=== PATIENT | male | born 1960 | race Caucasian/White ===

== ENCOUNTER 2021-05-22 11:58 | Inpatient (IN) | payer OTHER, SELFPAY ==
--- NOTE | ~2021-05-22 | CT_ITS ---
EXAMINATION: CT SOFT TISSUE NECK WITH CONTRAST CLINICAL INFORMATION: Parotitis. Osteomyelitis versus abscess formation. COMPARISON: None available. TECHNIQUE: Multidetector helical imaging was performed in the axial plane following the administration of 60 mL of Omnipaque 350 intravenous contrast. Multiple axial reformats and coronal/sagittal reconstructions were created the technologist workstation for review. This CT examination was performed using dose optimization techniques as appropriate, variously including the following: *Automated exposure control. *Adjustment of mA and/or kV according to patient size (this includes techniques or standardized protocols for targeted exams where dose is matched to indication/reason for exam; i.e. extremities or head). *Use of iterative reconstruction technique. DLP: 818 mGy-cm FINDINGS: There appears to be a heterogeneous soft tissue lesion centered in the deep aspect of the superficial lobe of the right parotid gland that extends through the stylomandibular tunnel, measuring approximately 2.7 x 2.4 x 3.7 cm. There also appears to be a 1.1 cm soft tissue nodule in the lateral aspect of the superficial lobe of the right parotid gland. No demonstrated fluid collection, sialoliths, or salivary ductal dilatation. Moderate fat stranding inferior to the right parotid gland extending into the right submandibular space and submental region. Mild fat stranding within the right parapharyngeal adipose tissue. Mild thickening of the right greater than left aspects of the platysma muscle. Mild fat stranding within the subcutaneous tissues of the right anterior neck. No significant cutaneous thickening or subcutaneous inflammation. No discrete fluid collection within the deep tissues of the neck. The premaxillary, retromaxillary, pterygopalatine fossa, orbital apical, left parapharyngeal, and prelaryngeal adipose tissue is maintained. Mild heterogeneous enlargement of the right submandibular gland with potential 0.8 cm lesion in the anterior aspect of the gland. Normal appearance of the left-sided parotid and mandibular glands. There appears to be ill-defined heterogeneous enlargement of the lower poles of the thyroid gland bilaterally. Right-sided cervical chain lymph nodes are mildly increased in number. A right-sided level 3 lymph node measures up to 1.4 cm. Otherwise, bilateral cervical chain lymph nodes largely remain subcentimeter in size. No demonstrated focal lesion or abnormal enhancement within the intrinsic tissues of the tongue or floor of mouth. Moderate diffuse edema of the mucosal surfaces of the pharynx, epiglottis, and larynx. Normal appearance of the hyoid bone, thyroid cartilage, or cartilaginous trachea. Moderate narrowing of the pharyngeal and supraglottic airway. No radiopaque foreign bodies. The atlantooccipital and atlantoaxial articulations remain well aligned. Straightening of the normal cervical lordosis. No evidence of acute fracture or subluxation of the cervical spine. The vertebral body heights are maintained. Advanced degenerative disc disease at C4-C5 and C6-C7 with disc-osteophyte complex formation. Mild degenerative disc disease at all additional cervical levels. Facet and uncovertebral joint arthropathy leads to osseous encroachment on the neural foramina from C3-C7. No evidence of epidural collection. There is no prevertebral soft tissue swelling. Normal opacification of the cervical arterial and venous structures. The visualized portion of the skull base is without significant abnormalities. Near complete opacification of the bilateral maxillary sinuses. Mild atelectasis of the right maxillary sinus. Moderate mucosal thickening of the ethmoid air cells. Moderate rightward nasal septal deviation with spurring. The mastoid air cells and middle ear cavities are clear. No demonstrated significant periapical odontogenic disease. CT Upper Chest: Extensive patchy irregular groundglass opacities throughout the periphery of the visualized upper lungs. Nonspecific mediastinal lymphadenopathy. A lower right paratracheal lymph node measures up to 1.8 cm in short axis. Higher right paratracheal, periaortic, and left hilar lymph nodes measure up to 1 cm in short axis. Trace bilateral pleural effusions. Coronary artery calcifications. The ascending aorta is aneurysmal, measuring [address]/CT soft tissue neck w con IMPRESSION: 1. Complex constellation of findings within the soft tissues of the neck: - There appears to be a 3.7 cm heterogeneous soft tissue mass in the deep aspect of the superficial lobe of the right parotid gland that extends through the stylomandibular tunnel. There also appears to be a 1.1 cm lesion in the superficial aspect of the right parotid gland. - Edematous expansion of the right submandibular gland. - Heterogeneous enlargement of the lower poles of the bilateral thyroid lobes - Moderate diffuse mucosal edema of the pharyngeal and laryngeal surfaces. Associated moderate narrowing of the pharyngeal and supraglottic airway. - Mildly prominent right greater than left cervical chain lymphadenopathy. Moderate mediastinal lymphadenopathy. - Extensive groundglass airspace opacities within the visualized upper lungs. Trace bilateral pleural effusions. The underlying etiology of this constellation of findings remains nonspecific. While an infectious/inflammatory process or angioedema could have some of these findings, there remains suspicion of an underlying neoplastic process when taking into account the lesion within the right parotid gland. 2. Moderate sinonasal mucosal disease with extensive bilateral maxillary sinusitis. 3. Moderate multilevel degenerative spinal arthropathy of the cervical spine. 4. Ascending aortic aneurysm, measuring 4 cm in diameter.
--- NOTE | ~2021-05-22 | XR_ITS ---
EXAMINATION: XR CHEST CLINICAL INFORMATION: Covid infection COMPARISON: None TECHNIQUE: 2 views of the chest were obtained. FINDINGS: The cardiac silhouette is upper normal in size. Hilar and mediastinal contours are unremarkable. There are bilateral infiltrates compatible with Covid infection. There is no pleural effusion or pneumothorax. There are degenerative changes of the spine. XR/XR chest 2V IMPRESSION: Bilateral infiltrates compatible with Covid infection.
[2021-05-22 13:29] VITALS: BP 166/82; PULSE 138; RESP 19; TEMP 36.6; O2SAT 93; BMI 30.8
--- NOTE | 2021-05-22 13:38 | ECG_ITS ---
Test Reason : tachy Blood Pressure : / mmHG Vent. Rate : 087 BPM Atrial Rate : 087 BPM P-R Int : 200 ms QRS Dur : 154 ms QT Int : 436 ms P-R-T Axes : 080 -53 085 degrees QTc Int : 524 ms Normal sinus rhythm Right bundle branch block Left anterior fascicular block Bifascicular block Minimal voltage criteria for LVH, may be normal variant ( R in aVL ) T wave abnormality, consider lateral ischemia Abnormal ECG No previous ECGs available Referred By: Generic ED Physician Electronically Signed By:[place]
[2021-05-22 14:00] LABS: MANUAL DIFF FLAG NO
[2021-05-22 14:03] LABS: Basophils Percent Auto 0.3 % (0-2); Eosinophils Absolute Auto 0.1 X10*3/uL (0.0-0.4); Eosinophils Percent Auto 0.9 % (0-4); Hematocrit 24.8 % (42.0-52.0); Hemoglobin 8.4 g/dl (14.0-18.0); Imm Gran Abs Auto 0.07 X10*3/uL (0.00-0.03); Imm Gran Pct Auto 0.6 % (0.0-0.4); Lymphocytes Absolute Auto 0.9 X10*3/uL (1.2-4.9); Mean Corpuscular HGB Conc 33.9 g/dl (31.0-36.0); Mean Corpuscular Hemoglobin 28.2 pg (27.0-33.0); Mean Corpuscular Volume 83.2 fL (80.0-98.0); Monocytes Absolute Auto 0.9 X10*3/uL (0.1-1.2); Monocytes Percent Auto 8.1 % (2-11); Neutrophils Absolute Auto 9.4 x10*3/uL (2.0-8.3); Neutrophils Percent Auto 82.1 % (45-73); Platelet Count 365 X10*3/uL (160-400); Red Blood Count 2.98 X10*6/uL (4.60-5.80); Red Cell Distribution Width 14.7 % (11.0-16.0); White Blood Count 11.4 X10*3/uL (4.8-10.8)
[2021-05-22 14:11] LABS: Lactic Acid 0.8 mmol/L (0.5-2.0)
[2021-05-22 14:18] LABS: Anion Gap 13 (12-20); Blood Urea Nitrogen 15 mg/dL (9-16); Calcium 7.9 mg/dL (8.4-10.2); Carbon Dioxide 21 mmol/L (22-29); Chloride 104 mmol/L (96-108); Creatinine Clr Calc Pharmacy 83.7; Estimated Glomerular Filt Rate > 60; Glucose Random 100 mg/dL (60-115); Potassium 3.8 mmol/L (3.3-5.1); Sodium 134 mmol/L (135-145)
[2021-05-22 14:21] LABS: Troponin-I High Sensitivity 63.1 ng/L (<3.5-35.0)
--- NOTE | 2021-05-22 17:20 | ED.GENADULT ---
HPI - General Adult General Chief complaint: General Medical Stated complaint: Fever/ swollen lymph node Time Seen by Provider: 05/22/21 16:58 Source: patient Mode of arrival: ambulatory History of Present Illness HPI narrative: 60-year-old male with PMH HTN, COVID-19 positive on 05/02, recently discharged from [facility] on 05/19 s/p admission on 05/02 for COVID-19 presenting to the ED complaining of right-sided neck swelling/pain, fever T-max 100.9?, difficulty/pain with swallowing since Thursday. Reports associated right-sided ear pain. Admits to persistent SOB since COVID-19, unchanged. Denies inability to swallow, CP, SOB, pedal edema, trauma/fall Onset (ago): day(s) Related Data Allergies Allergy/AdvReac Type Severity Reaction Status Date / Time No Known Allergies Allergy Unverified 05/22/21 17:10 Review of Systems Review of Systems: Constitutional: + Fever, No Chills, No Fatigue, No Malaise ENT/Mouth: +R neck pain, No Hearing loss, + Ear Pain, No Nasal Congestion, No Sinus Pain, No Hoarseness, + sore throat, No Rhinorrhea, + painful swallowing Eyes: No Eye Pain, No Swelling, No Redness Cardiovascular: No Chest Pain, +chronic SOB, No Dyspnea on Exertion Respiratory: No Cough, No Dyspnea Gastrointestinal: No Nausea, No Vomiting, No Diarrhea, No Constipation, No Abdominal pain Genitourinary: No Dysuria, No Urinary Frequency Musculoskeletal: No joint pain, No Myalgias, No Joint Swelling Skin: No Skin Lesions, No rash Neuro: No Weakness, No Numbness, No Headache Yes all other systems are reviewed and are negative [facility] Past Medical History Attestation statement: The following information was validated with the patient. Medical History HTN (hypertension) Social History Social History Advance Directives: No Advance Directives Information Provided: Yes Physical Exam Vital Signs: Vital Signs: Last Vital Signs Temp 98.9 F 05/22/21 19:16 Pulse 86 05/22/21 19:16 Resp 18 05/22/21 19:16 BP 114/65 05/22/21 19:16 Pulse Ox 94 05/22/21 19:16 BMI result Body Mass Index 30.8 Const: General: cooperative and no acute distress Orientation/consciousness: patient oriented x3 Limitations: no limitations HENMT: Head: Yes normal to inspection and Yes atraumatic Ears: hearing grossly normal bilaterally, external ears normal, TM's normal bilaterally and mastoids normal General nose exam: Normal external nose present Mouth: Normal oral and palatal mucosa present, no audible dysphonia and no drooling Throat: Yes posterior oropharynx normal, Yes tonsils normal, Yes uvula midline and No uvular edema Eyes: General: appearance normal, both eyes and all related structures EOM: EOMs intact bilaterally Neck: Other: + right-sided parotitis, + tender to palpation. No overlying erythema/cellulitis. No fluctuance/induration Neck: Yes normal visual inspection and Yes supple Resp: Effort & Inspection: normal respiratory effort Auscultation: clear to auscultation bilaterally, no rales, no rhonchi and no wheezes Cardio: Rate: regular rate Heart sounds: S1 normal heart sound present and S2 normal heart sound present GI: Inspection: Yes normal to inspection Palpation (GI): Soft to palpation, nontender and no guarding Skin: Rashes: no rashes Wounds: no wounds Neuro: General: patient oriented x3, tone normal and moves all extremities Gait exam (Neuro): Normal gait present Extrem: General: Yes normal to inspection Course Course Course Narrative: -mild leukocytosis of 11.4. H/H at patient's baseline -initial troponin 63.1, EKG nonischemic > will obtain 3hr repeat -1753--obtained records from [facility] patient was admitted on 05/02 s/p being found minimally responsive at home in hypoxic respiratory failure secondary to COVID-19. Hospital admission was complicated by urinary retention s/p Hernandez placement and iron deficiency anemia. H&H on 05/19 hemoglobin of 7.9, hematocrit of 24 XR chest 2V IMPRESSION: Bilateral infiltrates compatible with Covid infection. >> per [facility] records patient with known COVID-19 pneumonia, CXR appears unchanged -1824--CRP elevated to 17 2030--CT soft tissue neck w con IMPRESSION: 1. Complex constellation of findings within the soft tissues of the neck: - There appears to be a 3.7 cm heterogeneous soft tissue mass in the deep aspect of the superficial lobe of the right parotid gland that extends through the stylomandibular tunnel. There also appears to be a 1.1 cm lesion in the superficial aspect of the right parotid gland. ? - Edematous expansion of the right submandibular gland. ? - Heterogeneous enlargement of the lower poles of the bilateral thyroid lobes ? - Moderate diffuse mucosal edema of the pharyngeal and laryngeal surfaces. Associated moderate narrowing of the pharyngeal and supraglottic airway. ? - Mildly prominent right greater than left cervical chain lymphadenopathy. Moderate mediastinal lymphadenopathy. ? - Extensive groundglass airspace opacities within the visualized upper lungs. Trace bilateral pleural effusions. ? The underlying etiology of this constellation of findings remains nonspecific. While an infectious/inflammatory process or angioedema could have some of these findings, there remains suspicion of an underlying neoplastic process when taking into account the lesion within the right parotid gland. ? 2. Moderate sinonasal mucosal disease with extensive bilateral maxillary sinusitis. ? 3. Moderate multilevel degenerative spinal arthropathy of the cervical spine. ? 4. Ascending aortic aneurysm, measuring 4 cm in diameter. >> case discussed with Dr. Parada, will give 10 of IV Decadron and plan to admit Medical Decision Making MDM Narrative Medical decision making narrative: 60-year-old male with PMH HTN, COVID-19 positive on 05/02, recently discharged from [facility] on 05/19 s/p admission on 05/02 for COVID-19 presenting to the ED complaining of right-sided neck swelling/pain, fever T-max 100.9?, difficulty/pain with swallowing since Thursday. On exam initially tachycardic, afebrile, satting 93% on RA (discharge from [facility] 94% on RA), talking in complete sentences, in no respiratory distress, right-sided parotitis noted with tenderness to palpation, no appreciable overlying cellulitis. Concern for underlying abscess versus osteomyelitis Plan: Labs, lactic/blood cultures, empiric IV antibiotics, CT, pain control Medical Records Medical records reviewed: Yes I reviewed the patient's medical records. Lab Data Lab results reviewed: Yes I reviewed the patient's lab results. Result diagrams: 05/22/21 13:53 05/22/21 13:53 Labs: Lab Results 05/22/21 05/22/21 05/22/21 Range/Units 13:53 13:53 13:53 WBC 11.4 H (4.8-10.8) X10*3/uL RBC 2.98 L (4.60-5.80) X10*6/uL Hgb 8.4 L (14.0-18.0) g/dl Hct 24.8 L (42.0-52.0) % MCV 83.2 (80.0-98.0) fL MCH 28.2 (27.0-33.0) pg MCHC 33.9 (31.0-36.0) g/dl RDW 14.7 (11.0-16.0) % Plt Count 365 (160-400) X10*3/uL MPV 9.0 L (9.4-12.4) fL Immature Gran % (Auto) 0.6 H (0.0-0.4) % Neut % (Auto) 82.1 H (45-73) % Lymph % (Auto) 8.0 L (20-40) % [place] % (Auto) 8.1 (2-11) % Eos % (Auto) 0.9 (0-4) % Baso % (Auto) 0.3 (0-2) % Lymph # (Auto) 0.9 L (1.2-4.9) X10*3/uL [place] # (Auto) 0.9 (0.1-1.2) X10*3/uL Eos # (Auto) 0.1 (0.0-0.4) X10*3/uL Baso # (Auto) 0.0 (0.0-0.2) X10*3/uL Abs Immat Gran (auto) 0.07 H (0.00-0.03) X10*3/uL Absolute Neuts (auto) 9.4 H (2.0-8.3) x10*3/uL Absolute Nucleated RBC 0.000 (0.0-0.012) X10*3/uL Nucleated RBC % (auto) 0.0 (0.0-0.2) /100WBC ESR (0-15) MM/HR Sodium 134 L (135-145) mmol/L Potassium 3.8 (3.3-5.1) mmol/L Chloride 104 (96-108) mmol/L Carbon Dioxide 21 L (22-29) mmol/L Anion Gap 13 (12-20) BUN 15 (9-16) mg/dL Creatinine 1.00 (0.5-1.4) mg/dL Estim Creat Clear Calc 83.7 Estimated GFR > 60 Random Glucose 100 (60-115) mg/dL Lactic Acid (0.5-2.0) mmol/L Calcium 7.9 L (8.4-10.2) mg/dL Total Bilirubin 1.3 H (0.0-1.0) mg/dL Direct Bilirubin 0.7 H (0.0-0.5) mg/dL AST 22 (5-37) U/L ALT 29 (0-40) U/L Alkaline Phosphatase 85 (39-117) U/L Troponin I High Sens 63.1 H (<3.5-35.0) ng/L C-Reactive Protein 17.01 H (< or = 0.50) mg/dL Total Protein 6.2 L (6.5-8.0) g/dL Albumin 3.0 L (3.5-5.0) g/dL 05/22/21 05/22/21 05/22/21 Range/Units 13:53 13:53 17:58 WBC (4.8-10.8) X10*3/uL RBC (4.60-5.80) X10*6/uL Hgb (14.0-18.0) g/dl Hct (42.0-52.0) % MCV (80.0-98.0) fL MCH (27.0-33.0) pg MCHC (31.0-36.0) g/dl RDW (11.0-16.0) % Plt Count (160-400) X10*3/uL MPV (9.4-12.4) fL Immature Gran % (Auto) (0.0-0.4) % Neut % (Auto) (45-73) % Lymph % (Auto) (20-40) % [place] % (Auto) (2-11) % Eos % (Auto) (0-4) % Baso % (Auto) (0-2) % Lymph # (Auto) (1.2-4.9) X10*3/uL [place] # (Auto) (0.1-1.2) X10*3/uL Eos # (Auto) (0.0-0.4) X10*3/uL Baso # (Auto) (0.0-0.2) X10*3/uL Abs Immat Gran (auto) (0.00-0.03) X10*3/uL Absolute Neuts (auto) (2.0-8.3) x10*3/uL Absolute Nucleated RBC (0.0-0.012) X10*3/uL Nucleated RBC % (auto) (0.0-0.2) /100WBC ESR > 140 H (0-15) MM/HR Sodium (135-145) mmol/L Potassium (3.3-5.1) mmol/L Chloride (96-108) mmol/L Carbon Dioxide (22-29) mmol/L Anion Gap (12-20) BUN (9-16) mg/dL Creatinine (0.5-1.4) mg/dL Estim Creat Clear Calc Estimated GFR Random Glucose (60-115) mg/dL Lactic Acid 0.8 (0.5-2.0) mmol/L Calcium (8.4-10.2) mg/dL Total Bilirubin (0.0-1.0) mg/dL Direct Bilirubin (0.0-0.5) mg/dL AST (5-37) U/L ALT (0-40) U/L Alkaline Phosphatase (39-117) U/L Troponin I High Sens 52.3 H (<3.5-35.0) ng/L C-Reactive Protein (< or = 0.50) mg/dL Total Protein (6.5-8.0) g/dL Albumin (3.5-5.0) g/dL ECG Data Attestation: I personally reviewed and interpreted this ECG as follows: Interpretation: EKG normal sinus rhythm at a rate of 87. Right bundle-branch block. Nonspecific ST changes. No STEMI Discharge Plan Discharge Clinical Impression: Mass of right parotid gland, Neck swelling Patient Disposition: Admitted As Inpatient
[2021-05-22 18:02] VITALS: BP 106/55; PULSE 77; RESP 20; TEMP 36.7; O2SAT 98
[2021-05-22 18:07] LABS: Alanine Aminotransferase 29 U/L (0-40); Alkaline Phosphatase 85 U/L (39-117); Aspartate Amino Transferase 22 U/L (5-37); Bilirubin Direct 0.7 mg/dL (0.0-0.5); Bilirubin Total 1.3 mg/dL (0.0-1.0); C Reactive Protein 17.01 mg/dL (< or = 0.50); Total Protein 6.2 g/dL (6.5-8.0)
[2021-05-22 18:44] LABS: Erythrocyte Sedimentation Rate > 140 MM/HR (0-15)
[2021-05-22 18:48] LABS: Troponin-I High Sensitivity 52.3 ng/L (<3.5-35.0)
[2021-05-22] MEDS: iohexoL 350 MG/ML 100 ML INFUS..BTL IV (18:49)
[2021-05-22 19:16] VITALS: BP 114/65; PULSE 86; RESP 18; TEMP 37.2; O2SAT 94
[2021-05-22] MEDS: Ketorolac Tromethamine 30 MG/ML VIAL IVPUSH (19:19)
[2021-05-22] MEDS: Piperacillin Sodium/Tazobactam 3.375 GM in 0.9 % Sodium Chloride 50 ML IV (19:20)
[2021-05-22] MEDS: 0.9 % Sodium Chloride 1,000 ML 999 ML IV (19:20)
--- NOTE | 2021-05-22 19:23 | PC.NURSE ---
Pt resting on stretcher in NAD, breathing with ease on RA, VSS. Pt aaox4, able to speak/swallow/manage secretions. Pt reports R neck pain at rest, worse with movement of face/mouth. Pt denies difficulty swallowing. Pt aware and agreeable to plan to await CT results and thus dispo. Pt medicated per JUL. Pt's NS bolus documented by this RN, however, when this RN to bedside, fluids were infusing and had been hung by previous RN Jamaal which had been reported during change of shift report. Pt stretcher low locked, rails raised, call cunha within reach.
[2021-05-22] MEDS: vancomycin HCL 1,000 MG in 0.9 % Sodium Chloride 250 ML 270 MG IV (19:31)
[2021-05-22] MEDS: dexAMETHasone sod phosphate 10 MG/ML VIAL IVPUSH (21:00)
[2021-05-22 21:02] VITALS: BP 106/69; PULSE 82; RESP 18; O2SAT 94
[2021-05-22 21:09] LABS: COVID-19 Test Negative (Negative); IDNOW Serial# 9DD0AD1C
--- NOTE | 2021-05-22 22:02 | P.HPHOSP_ITS ---
History of Present Illness Date of Service: 05/22/21 Chief Complaint: right parotid swelling 60-year-old male with a past medical history of hypertension, recently discharged from the [facility] after being treated for COVID-19 infection; presented to the hospital today with a chief complaint of right neck pain and swelling; patient reports that with a past 3 days he has been having pain and swelling on the right side of the neck near the angle of the jaw the /parotid. Denies any discharge from [facility]; denies any sore throat or speech difficulty. Denies any difficulty swallowing. Denies any fevers or cough. As the swelling has been significantly worsened today and increased pain decided to come to the ER for further evaluation. Denies any chest pain or palpitations. Denies any GI symptoms. Review of all other systems is negative except mentioned above ER course: Per ER team patient noted to have right parotid swelling; CT scan showed concern for right parotid mass / also noted laryngeal/pharyngeal edema-no evidence of respiratory compromise; patient breathing comfortably on room air; patient was given IV vancomycin and Zosyn. Admitted to the hospital for observation [facility] Medical History HTN (hypertension) Pertinent family history: reviewed Social History Advance Directives: No Advance Directives Information Provided: Yes Meds Allergies Allergy/AdvReac Type Severity Reaction Status Date / Time No Known Allergies Allergy Unverified 05/22/21 17:10 Active Medications: Current Medications Carvedilol (Carvedilol 3.125 Mg Tablet) 3.125 mg PO BID [facility]; Protocol Dexamethasone Sodium Phosphate (Dexamethasone Sod Phosphate 4 Mg/Ml Vial) 4 mg IVPUSH BID [facility] Ferrous Sulfate (Ferrous Sulfate 324 Mg Tablet.Dr) 324 mg PO DAILY [facility] Vancomycin HCl 1,000 mg/ (Sodium Chloride) 270 mls @ 270 mls/hr IV Q12H [facility] Piperacillin Sod/Tazobactam (Sod 3.375 gm/ Sodium Chloride) 50 mls @ 100 mls/hr IV Q6H [facility] Multivitamins/Vitamin C (Multivitamin Tablet) 1 tab PO DAILY [facility] Pharmacy Consult (Consult Rx Perform Med Rec) 1 each MISCELLANE ONCE PRN PRN Reason: Consult order Pharmacy Consult (Consult Rx Vancomycin Dosing) 1 each MISCELLANE DAILY PRN PRN Reason: Consult order Tamsulosin HCl (Tamsulosin Hcl 0.4 Mg Capsule) 0.4 mg PO DAILY [facility] Thiamine HCl (Thiamine Hcl 100 Mg Tablet) 100 mg PO DAILY [facility] Verapamil HCl (Verapamil Hcl Sr 180 Mg Tablet.Er) 360 mg PO BEDTIME [facility]; Protocol Home Medications Medication Instructions Recorded Confirmed Last Taken Type carvedilol 3.125 1 tab PO BID 05/22/21 05/22/21 05/22/21 History mg tablet ferrous sulfate 324 mg PO DAILY 05/22/21 05/22/21 05/22/21 History 324 mg (65 mg iron) tablet,delayed release multivitamin 1 tab PO DAILY 05/22/21 05/22/21 05/22/21 History tamsulosin 0.4 mg 1 cap PO DAILY 05/22/21 05/22/21 05/22/21 History capsule thiamine HCl 1 tab PO DAILY 05/22/21 05/22/21 05/22/21 History (vitamin B1) 100 mg tablet verapamil 180 mg 360 mg PO 05/22/21 05/22/21 05/21/21 History 24 hr BEDTIME capsule,extended release Physical Exam Verdana 4l Vital Signs and Narrative: Verdana 4d Verdana 4d Vital Signs: Verdana 4d Verdana 4Bd Last Vital Signs Verdana 4d Forge Heater New 4d Forge Heater New 4d Temp 98.9 F 05/22/21 19:16 Forge Heater New 4d Pulse 82 05/22/21 21:02 Forge Heater NewNew 4d Resp 18 05/22/21 21:02 BP 106/69 05/22/21 21:02 Pulse Ox 94 05/22/21 21:02 BMI result Body Mass Index 30.8 Gen: Appears be in no acute distress . Speaks in full sentences. breathing comfortably on room air. Voice is clear. HEENT: NCAT, Moist mucosa. swelling, tenderness, mild erythema noted on the right parotid area. No submandibular lymphadenopathy noted. Pulmonary: Vesicular breath sounds, fair air entry CVS: Normal S1-S2 Abdomen: BS+, Soft, Nontender Extremities: Warm well perfused Neuro: Alert and awake. Nonfocal Results Labs CBC and Chem 7: 05/22/21 13:53 05/22/21 13:53 Labs: Laboratory Results - last 24 hr 01/05/22/21 05/22/21 13:53 13:53 13:53 MCV 83.2 MCH 28.2 MCHC 33.9 RDW 14.7 Plt Count 365 MPV 9.0 L Immature Gran % (Auto) 0.6 H Neut % (Auto) 82.1 H Lymph % (Auto) 8.0 L [place] % (Auto) 8.1 Eos % (Auto) 0.9 Baso % (Auto) 0.3 Lymph # (Auto) 0.9 L [place] # (Auto) 0.9 Eos # (Auto) 0.1 Baso # (Auto) 0.0 Abs Immat Gran (auto) 0.07 H Absolute Neuts (auto) 9.4 H Absolute Nucleated RBC 0.000 Nucleated RBC % (auto) 0.0 ESR Anion Gap 13 Estim Creat Clear Calc 83.7 Estimated GFR > 60 Random Glucose 100 Lactic Acid Calcium 7.9 L Total Bilirubin 1.3 H Direct Bilirubin 0.7 H AST 22 ALT 29 Alkaline Phosphatase 85 Troponin I High Sens 63.1 H C-Reactive Protein 17.01 H Total Protein 6.2 L Albumin 3.0 L COVID-19 (SOFÍA) COVIDwufoo 05/22/21 05/22/21 05/22/21 13:53 13:53 17:58 MCV MCH MCHC RDW Plt Count MPV Immature Gran % (Auto) Neut % (Auto) Lymph % (Auto) [place] % (Auto) Eos % (Auto) Baso % (Auto) Lymph # (Auto) [place] # (Auto) Eos # (Auto) Baso # (Auto) Abs Immat Gran (auto) Absolute Neuts (auto) Absolute Nucleated RBC Nucleated RBC % (auto) ESR > 140 H Anion Gap Estim Creat Clear Calc Estimated GFR Random Glucose Lactic Acid 0.8 Calcium Total Bilirubin Direct Bilirubin AST ALT Alkaline Phosphatase Troponin I High Sens 52.3 H C-Reactive Protein Total Protein Albumin COVID-19 (SOFÍA) COVIDwufoo 05/22/21 20:44 MCV MCH MCHC RDW Plt Count MPV Immature Gran % (Auto) Neut % (Auto) Lymph % (Auto) [place] % (Auto) Eos % (Auto) Baso % (Auto) Lymph # (Auto) [place] # (Auto) Eos # (Auto) Baso # (Auto) Abs Immat Gran (auto) Absolute Neuts (auto) Absolute Nucleated RBC Nucleated RBC % (auto) ESR Anion Gap Estim Creat Clear Calc Estimated GFR Random Glucose Lactic Acid Calcium Total Bilirubin Direct Bilirubin AST ALT Alkaline Phosphatase Troponin I High Sens C-Reactive Protein Total Protein Albumin COVID-19 (SOFÍA) Negative COVID-19 Clin Com See Note Imaging Radiologist's Impressions: Impressions Chest X-Ray 05/22/21 14:26 IMPRESSION: Bilateral infiltrates compatible with Covid infection. Soft Tissue Neck CT 05/22/21 19:00 IMPRESSION: 1. Complex constellation of findings within the soft tissues of the neck: - There appears to be a 3.7 cm heterogeneous soft tissue mass in the deep aspect of the superficial lobe of the right parotid gland that extends through the stylomandibular tunnel. There also appears to be a 1.1 cm lesion in the superficial aspect of the right parotid gland. - Edematous expansion of the right submandibular gland. - Heterogeneous enlargement of the lower poles of the bilateral thyroid lobes - Moderate diffuse mucosal edema of the pharyngeal and laryngeal surfaces. Associated moderate narrowing of the pharyngeal and supraglottic airway. - Mildly prominent right greater than left cervical chain lymphadenopathy. Moderate mediastinal lymphadenopathy. - Extensive groundglass airspace opacities within the visualized upper lungs. Trace bilateral pleural effusions. The underlying etiology of this constellation of findings remains nonspecific. While an infectious/inflammatory process or angioedema could have some of these findings, there remains suspicion of an underlying neoplastic process when taking into account the lesion within the right parotid gland. 2. Moderate sinonasal mucosal disease with extensive bilateral maxillary sinusitis. 3. Moderate multilevel degenerative spinal arthropathy of the cervical spine. 4. Ascending aortic aneurysm, measuring 4 cm in diameter. Assessment and Plan (1) Mass of right parotid gland: Status: Acute (2) Parotitis: Status: Acute 60-year-old male with a past medical history of hypertension, recently discharged from the [facility] after being treated for COVID-19 infection; presented to the hospital today with a chief complaint of right neck pain and swelling near the parotid. Noted to have acute parotitis. Admitted for further management. Acute right-sided parotitis: Continue IV vancomycin and Zosyn. Id consult. Also noted laryngeal/pharyngeal edema- no airway compromise. Patient started on IV Decadron b.i.d.. Parotid mass: Noted heterogeneous 3.7 cm mass in the right parotid as per the CT scan. Oncology consult for further recommendations. Recent COVID infection: Patient denies any respiratory complaints currently. Supportive care. History of hypertension: Continue home metoprolol, carvedilol. DVT prophylaxis: Subcu heparin Code status: Full code Quality Stroke Does the patient have a stroke diagnosis?: No VTE Prior VTE?: No VTE Risk Level:: Medical - low VTE Device Contraindication: Treatment Not Indicated VTE Drug Contraindication: Treatment Not Indicated
[2021-05-22 23:54] VITALS: BP 103/63; PULSE 74; RESP 19; O2SAT 94
[2021-05-22 23:57] VITALS: BP 103/63; PULSE 75; RESP 20; O2SAT 95
[2021-05-22] MEDS: Heparin Sodium,Porcine 5,000 UNIT/ML VIAL 5000 UNIT SUBCUT (23:58)
--- NOTE | 2021-05-23 00:21 | PC.NURSE ---
Report called to TIM Holt in overflow.
[2021-05-23] MEDS: Piperacillin Sodium/Tazobactam 3.375 GM in 0.9 % Sodium Chloride 50 ML IV ×3 (02:44→16:09)
[2021-05-23 06:18] LABS: Basophils Percent Auto 0.1 % (0-2); Eosinophils Percent Auto 0.1 % (0-4); Hematocrit 24.3 % (42.0-52.0); Imm Gran Abs Auto 0.04 X10*3/uL (0.00-0.03); Imm Gran Pct Auto 0.5 % (0.0-0.4); Lymphocytes Absolute Auto 0.4 X10*3/uL (1.2-4.9); Lymphocytes Percent Auto 5.1 % (20-40); MANUAL DIFF FLAG SCAN; Mean Corpuscular HGB Conc 32.9 g/dl (31.0-36.0); Mean Corpuscular Hemoglobin 27.9 pg (27.0-33.0); Mean Corpuscular Volume 84.7 fL (80.0-98.0); Mean Platelet Volume 9.2 fL (9.4-12.4); Monocytes Absolute Auto 0.1 X10*3/uL (0.1-1.2); Monocytes Percent Auto 1.3 % (2-11); Neutrophils Absolute Auto 7.2 x10*3/uL (2.0-8.3); Neutrophils Percent Auto 92.9 % (45-73); Platelet Count 366 X10*3/uL (160-400); Red Blood Count 2.87 X10*6/uL (4.60-5.80); SCAN SMEAR FLAG 1; White Blood Count 7.7 X10*3/uL (4.8-10.8)
[2021-05-23] MEDS: Heparin Sodium,Porcine 5,000 UNIT/ML VIAL 5000 UNIT SUBCUT ×2 (06:23→16:09)
[2021-05-23 06:29] LABS: Anion Gap 13 (12-20); Blood Urea Nitrogen 17 mg/dL (9-16); Carbon Dioxide 21 mmol/L (22-29); Chloride 106 mmol/L (96-108); Creatinine Clr Calc Pharmacy 88.1; Estimated Glomerular Filt Rate > 60; Glucose Random 158 mg/dL (60-115); Potassium 4.4 mmol/L (3.3-5.1); Sodium 136 mmol/L (135-145)
[2021-05-23 06:52] LABS: SLIDE REVIEW VERIFIED
[2021-05-23] MEDS: vancomycin HCL 1,000 MG in 0.9 % Sodium Chloride 250 ML 270 MG IV (07:32)
[2021-05-23 07:59] VITALS: BP 106/67; PULSE 92; RESP 16; TEMP 36.4; O2SAT 94
[2021-05-23] MEDS: carvediloL 3.125 MG TABLET PO (08:55)
[2021-05-23] MEDS: Multivitamin TABLET 1 TAB PO (08:55)
[2021-05-23] MEDS: Tamsulosin HCL 0.4 MG CAPSULE PO (08:55)
[2021-05-23] MEDS: Thiamine HCL 100 MG TABLET PO (08:55)
[2021-05-23] MEDS: Ferrous Sulfate 324 MG TABLET.DR PO (08:55)
[2021-05-23] MEDS: dexAMETHasone sod phosphate 4 MG/ML VIAL IVPUSH (08:55)
--- NOTE | 2021-05-23 11:09 | PC.NURSE ---
Pt A&Ox3, LCA, no complaints of pain at this time, swelling noted to R side of neck, no difficulty swallowing, no drooling or aspiration. Good PO intake, medicated as per [facility] orders. Awaiting bed assignment. Call cunha within reach, will continue to monitor.
--- NOTE | 2021-05-23 11:54 | MHC.CM.PN ---
Addendum entered by Briseida Lao 05/24/21 08:23: PT DISCHARGED HOME WITH [facility] OF [facility] ON 05/23/21. PTS DC SUMMARY WAS FAXED ([phone]) TO [facility] AT 08:24 ON 05/24/19 PER THEIR REQUEST. Original Note: PT REPORTS HE LIVES ALONE AND IS INDEPENDENT WITH CARE PT REPORTS HE IS CURRENTLY USING A WALKER HE HAS BEEN FEELING WEAK HOWEVER AT BASELINE HE DOES NOT USE ANY DME PT REPORTS HE WAS JUST DISCHARGED FROM [facility] WITH [facility]. 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
--- NOTE | 2021-05-23 12:20 | PM.HEMONCCN ---
Subjective - Subjective Chief complaint: Consult for: Parotid mass. Patient: new to practice Consult date: 05/23/21 Requesting Physician: Linda. Primary Care Provider: Eliana Calloway MD Family Provider: Eliana Fall. Medical Summary: DIAGNOSIS: RIGHT PAROTID MASS. HPI - Consult Narrative Reason for consult: Consult for: Parotid mass. Narrative: Mazin Villagran is a pleasant 60 year old gentleman, recently discharged from the [facility] after being treated for COVID-19 infection; presented to the hospital with a chief complaint of right neck pain and swelling; He mentions that with a past 3 days he has been having pain and swelling on the right side of the neck near the angle of the jaw the /parotid. Denies any discharge from [facility]; denies any sore throat or speech difficulty. Denies any difficulty swallowing. Denies any fevers or cough. As the swelling has been significantly worsened today and increased pain decided to come to the ER for further evaluation. Denies any chest pain or palpitations. Denies any GI symptoms. Review of all other systems is negative except mentioned above ER course: CT scan showed concern for right parotid mass / also noted laryngeal/pharyngeal edema-no evidence of respiratory compromise; patient breathing comfortably on room air; patient was given IV vancomycin and Zosyn. [facility] Hypertension. Review of Systems - Constitutional Reports system reviewed and no additional complaints, except as documented - Eyes Reports system reviewed and no additional complaints, except as documented - ENT Reports system reviewed and no additional complaints, except as documented - Cardiovascular Reports system reviewed and no additional complaints, except as documented - Respiratory Reports no additional respiratory complaints - Gastrointestinal Reports system reviewed and no additional complaints, except as documented - Genitourinary Genitourinary: Reports no additional male genitourinary complaints - Musculoskeletal Reports system reviewed and no additional complaints, except as documented - Integumentary/Breasts Skin/Breast: Reports no additional skin complaints - Neurologic Reports system reviewed and no additional complaints, except as documented - Psychiatric Reports system reviewed and no additional complaints, except as documented - Endocrine Reports no additional endocrine complaints - Hematologic/Lymphatic Reports system reviewed and no additional complaints, except as documented - Allergic/Immunologic Reports system reviewed and no additional complaints, except as documented Oncology Screenings - ECOG Performance Status ECOG Performance Status: 1 [facility] Medical History: Medical History (Last Reviewed 05/22/21 @ 17:35 by JUD Sousa) HTN (hypertension) Functional capacity: uses cane/walker Patient : No Social History: Social History (Last Reviewed 05/22/21 @ 17:35 by JUD Sousa) Advance Directives: Advance Directives: No Advance Directives Information Provided: Yes Nutrition Assessment: Patient : No Occupation Assessmet: service: No Current occupational status: employed Home Medications and Allergies Current Medications: Current Medications Acetaminophen (Acetaminophen 325 Mg Tablet) 650 mg PO Q6H PRN PRN Reason: Pain, Mild (Pain Scale 1-3) Carvedilol (Carvedilol 3.125 Mg Tablet) 3.125 mg PO BID [facility]; Protocol Last Admin: 05/23/21 08:55 Dose: 3.125 mg Documented by: Dexamethasone Sodium Phosphate (Dexamethasone Sod Phosphate 4 Mg/Ml Vial) 4 mg IVPUSH BID [facility] Last Admin: 05/23/21 08:55 Dose: 4 mg Documented by: Ferrous Sulfate (Ferrous Sulfate 324 Mg Tablet.) 324 mg PO DAILY [facility] Last Admin: 05/23/21 08:55 Dose: 324 mg Documented by: Heparin Sodium (Porcine) (Heparin Sodium,Porcine 5,000 Unit/Ml Vial) 5,000 unit SUBCUT Q8H [facility] Last Admin: 05/23/21 06:23 Dose: 5,000 unit Documented by: Vancomycin HCl 1,000 mg/ (Sodium Chloride) 270 mls @ 270 mls/hr IV Q12H [facility] Last Infusion: 05/23/21 08:56 Dose: Infused Documented by: Piperacillin Sod/Tazobactam (Sod 3.375 gm/ Sodium Chloride) 50 mls @ 100 mls/hr IV Q6H [facility] Last Infusion: 05/23/21 10:16 Dose: Infused Documented by: Melatonin (Melatonin 3 Mg Tablet) 6 mg PO BEDTIME PRN PRN Reason: Insomnia Multivitamins/Vitamin C (Multivitamin Tablet) 1 tab PO DAILY [facility] Last Admin: 05/23/21 08:55 Dose: 1 tab Documented by: Pharmacy Consult (Consult Rx Perform Med Rec) 1 each MISCELLANE ONCE PRN PRN Reason: Consult order Pharmacy Consult (Consult Rx Vancomycin Dosing) 1 each MISCELLANE DAILY PRN PRN Reason: Consult order Senna (Sennosides 8.6 Mg Tablet) 17.2 mg PO BEDTIME PRN PRN Reason: Constipation Sodium Chloride (0.9 % Sodium Chloride Flush 3 Ml Syringe) 3 ml IVFLUSH QSHIFT [facility] Last Admin: 05/23/21 08:06 Dose: Not Given Documented by: Tamsulosin HCl (Tamsulosin Hcl 0.4 Mg Capsule) 0.4 mg PO DAILY [facility] Last Admin: 05/23/21 08:55 Dose: 0.4 mg Documented by: Thiamine HCl (Thiamine Hcl 100 Mg Tablet) 100 mg PO DAILY [facility] Last Admin: 05/23/21 08:55 Dose: 100 mg Documented by: Verapamil HCl (Verapamil Hcl Sr 180 Mg Tablet.Er) 360 mg PO BEDTIME [facility]; Protocol Home Medications Medication Instructions Recorded Confirmed Type carvedilol 3.125 mg tablet 1 tab PO BID 05/22/21 05/22/21 History ferrous sulfate 324 mg (65 mg 324 mg PO DAILY 05/22/21 05/22/21 History iron) tablet,delayed release multivitamin 1 tab PO DAILY 05/22/21 05/22/21 History tamsulosin 0.4 mg capsule 1 cap PO DAILY 05/22/21 05/22/21 History thiamine HCl (vitamin B1) 100 mg 1 tab PO DAILY 05/22/21 05/22/21 History tablet verapamil 180 mg 24 hr 360 mg PO BEDTIME 05/22/21 05/22/21 History capsule,extended release Allergies Allergy/AdvReac Type Severity Reaction Status Date / Time No Known Allergies Allergy Unverified 05/22/21 17:10 Physical Exam Vital signs: Vital Signs Temp 97.5 F 05/23/21 07:59 Pulse 92 05/23/21 07:59 Resp 16 05/23/21 07:59 BP 106/67 05/23/21 07:59 Pulse Ox 94 05/23/21 07:59 Intake & Output 05/22/21 05/23/21 05/23/21 18:59 06:59 18:59 Intake Total 1320 / 1320 1130 / 1130 Balance 1320 / 1320 1130 / 1130 Intake: Intake, Oral Amount 760 / 760 Intake, IV Amount 1320 / 1320 370 / 370 0.9 % Sodium Chloride 1,000 ml 1000 / 1000 @ 999 mls/hr IV .Q1H1M [facility] Rx#: [id number] Piperacillin Sodium/Tazobactam 50 / 50 100 / 100 3.375 gm In 0.9 % Sodium Chloride 50 ml @ 100 mls/hr IV Q6H [facility] Rx#:[id number] vancomycin HCL 1,000 mg In 0.9 270 / 270 270 / 270 % Sodium Chloride 250 ml @ 270 mls/hr IV Q12H [facility] Rx#: [id number] Other: Breakfast % Eaten 100% Weight 89.358 kg Weight 89.358 kg - Constitutional Present: mild distress - Routine HEENT Exam Head: Present: normal inspection - Routine Respiratory Exam Present: CTAB - Routine Cardiovascular Exam Cardiovascular: Present: RRR, S1, S2 Hem/Onc Consult Result - Labs CBC & Chem 7: 05/23/21 05:42 05/23/21 05:42 Labs: Short CBC 05/22/21 05/23/21 Range/Units 13:53 05:42 WBC 11.4 H 7.7 (4.8-10.8) X10*3/uL Hgb 8.4 L 8.0 L (14.0-18.0) g/dl Hct 24.8 L 24.3 L (42.0-52.0) % Plt Count 365 366 (160-400) X10*3/uL BMP 05/22/21 05/23/21 13:53 05:42 Sodium 134 L 136 Potassium 3.8 4.4 Chloride 104 106 Carbon Dioxide 21 L 21 L BUN 15 17 H Creatinine 1.00 0.95 Calcium 7.9 L 8.0 L Liver Function 05/22/21 Range/Units 13:53 Total Bilirubin 1.3 H (0.0-1.0) mg/dL Direct Bilirubin 0.7 H (0.0-0.5) mg/dL AST 22 (5-37) U/L ALT 29 (0-40) U/L Alkaline Phosphatase 85 (39-117) U/L Albumin 3.0 L (3.5-5.0) g/dL Assessment and Plan Patient Active problem list reviewed?: Yes (1) Mass of right parotid gland Status: Acute Assessment and plan: This is a pleasant 60-year-old gentleman with recent history of COVID infection. He presents with rather an acute swelling of the right parotid gland. CT scan of the neck revealed: 1. Complex constellation of findings within the soft tissues of the neck: - There appears to be a 3.7 cm heterogeneous soft tissue mass in the deep aspect of the superficial lobe of the right parotid gland that extends through the stylomandibular tunnel. There also appears to be a 1.1 cm lesion in the superficial aspect of the right parotid gland. - Edematous expansion of the right submandibular gland. - Heterogeneous enlargement of the lower poles of the bilateral thyroid lobes - Moderate diffuse mucosal edema of the pharyngeal and laryngeal surfaces. Associated moderate narrowing of the pharyngeal and supraglottic airway. - Mildly prominent right greater than left cervical chain lymphadenopathy. Moderate mediastinal lymphadenopathy. - Extensive groundglass airspace opacities within the visualized upper lungs. Trace bilateral pleural effusions. The underlying etiology of this constellation of findings remains nonspecific.While an infectious/inflammatory process or angioedema could have these findings, there remains suspicion of an underlying neoplastic process when taking into account the lesion within the right parotid gland. 2. Moderate sinonasal mucosal disease with extensive bilateral maxillary sinusitis. 3. Moderate multilevel degenerative spinal arthropathy of the cervical spine. 4. Ascending aortic aneurysm, measuring 4 cm in diameter. The rather acute presentation appears to be more indicative of an inflammatory disorder. Given the associated adenopathy and ground-glass appearance in the lungs, could be residual from the recent COVID infection. PLAN: I would recommend continuing him on the antibiotics and anti-inflammatories for now. I would let the dust settle and repeat imaging in a few weeks time. If imaging is still suggestive can proceed with biopsy of the parotid gland. Thank you for the consult, I will follow along with you, CC: Dr. Mckeon. ADDENDUM: He will be going home 05/24/2021. He will complete the course of antibiotics and steroids. Will then follow up with his primary for further management. Will be happy to see him again in case the parotid mass turns out to be malignant. - Time Spent With Patient Time Spent with Patient (in minutes): 30
[2021-05-23 12:56] VITALS: BP 114/73; PULSE 77; RESP 17; TEMP 36.2; O2SAT 98
--- NOTE | 2021-05-23 16:01 | PC.NURSE ---
Pt ambulated on room air. Sats maintained 94-95% Pt denies sob at this time. Lungs clear.
[2021-05-23] MEDS: 0.9 % Sodium Chloride Flush 3 ML SYRINGE IVFLUSH (16:15)
[2021-05-23 16:49] VITALS: BP 106/71; PULSE 75; RESP 18; TEMP 36.3; O2SAT 94
--- NOTE | 2021-05-23 16:54 | PM.DS ---
DS: Providers Provider Date of Service: 05/23/21 Date of admission: 05/22/21 22:01 Primary care physician: Eliana Calloway MD Consults: 05/22/21 21:58 Consult to Hematology / Oncology Routine Consulting Provider: Fariha Laureano Reason for consultation: parotid mass Consult to Infectious Diseases Routine Consulting Provider: Erin Peck Reason for consultation: parotid mass Attending physician on discharge: Shmuel Oliveira Discharging clinician: Sofia Alanis DS: Diagnosis Discharge Diagnosis (1) Mass of right parotid gland: Status: Acute (2) Anemia: Status: Acute (3) Parotitis: Status: Acute DS: Summary Hospital Course Hospital Course: ?From H&P on day of admission 60-year-old male with a past medical history of hypertension, recently discharged from [facility] after being treated for COVID-19 infection; presented to the hospital today with a chief complaint of right neck pain and swelling; patient reports that with a past 3 days he has been having pain and swelling on the right side of the neck near the angle of the jaw the /parotid.? Denies any discharge from [facility]; denies any sore throat or speech difficulty.? Denies any difficulty swallowing.? Denies any fevers or cough.? As the swelling has been significantly worsened today and increased pain decided to come to the ER for further evaluation.? Denies any chest pain or palpitations.? Denies any GI symptoms.? Review of all other systems is negative except mentioned above ER course: Per ER team patient noted to have right parotid swelling; CT scan showed concern for right parotid mass / also noted laryngeal/pharyngeal edema-no evidence of respiratory compromise; patient breathing comfortably on room air; patient was given IV vancomycin and Zosyn.? Admitted to the hospital for observation Patient had no difficulty swallowing, no difficulty breathing or respiratory distress. He was ambulated on room air without hypoxia. 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 He was seen in consultation by Oncology who Recommended repeat imaging in a couple weeks after things settle down to determine need for parotid gland biopsy. Case discussed with infectious diseases, Patient will be discharged with 10 days of oral Augmentin as well as prednisone taper. He is encouraged to schedule follow up with PCP for follow up imaging as well as anemia workup. Time Spent with Patient Time attestation: Total time spent providing and/or coordinating discharge services: Discharge coordination time: Greater than 30 minutes Quality: Stroke Does the patient have a stroke diagnosis?: No Physical Exam Vital Signs: Vital Signs: Last Vital Signs Temp 97.2 F 05/23/21 12:56 Pulse 77 05/23/21 12:56 Resp 17 05/23/21 12:56 BP 114/73 05/23/21 12:56 Pulse Ox 94 05/23/21 16:49 BMI result Body Mass Index 30.8 Const: General: cooperative, comfortable, no acute distress, alert and awake Resp: Effort & Inspection: normal respiratory effort, able to speak in complete sentences and no respiratory distress Cardio: Rate: regular rate Rhythm: regular rhythm GI: Inspection: No distended Palpation (GI): Soft to palpation DS: Data Data Completed and Pending Labs on day of discharge: Laboratory Results - last 24 hr 05/22/21 05/22/21 05/22/21 13:53 13:53 17:58 WBC RBC Hgb Hct MCV MCH MCHC RDW Plt Count MPV Immature Gran % (Auto) Neut % (Auto) Lymph % (Auto) [place] % (Auto) Eos % (Auto) Baso % (Auto) Lymph # (Auto) [place] # (Auto) Eos # (Auto) Baso # (Auto) Abs Immat Gran (auto) Absolute Neuts (auto) Absolute Nucleated RBC Nucleated RBC % (auto) Smear Tech's Comments ESR > 140 H Sodium Potassium Chloride Carbon Dioxide Anion Gap BUN Creatinine Estim Creat Clear Calc Estimated GFR Random Glucose Calcium Total Bilirubin 1.3 H Direct Bilirubin 0.7 H AST 22 ALT 29 Alkaline Phosphatase 85 Troponin I High Sens 52.3 H C-Reactive Protein 17.01 H Total Protein 6.2 L Albumin 3.0 L COVID-19 (SOFÍA) COVID-19 Clin Com 05/22/21 05/23/21 05/23/21 20:44 05:42 05:42 WBC 7.7 RBC 2.87 L Hgb 8.0 L Hct 24.3 L MCV 84.7 MCH 27.9 MCHC 32.9 RDW 15.0 Plt Count 366 MPV 9.2 L Immature Gran % (Auto) 0.5 H Neut % (Auto) 92.9 H Lymph % (Auto) 5.1 L [place] % (Auto) 1.3 L Eos % (Auto) 0.1 Baso % (Auto) 0.1 Lymph # (Auto) 0.4 L [place] # (Auto) 0.1 Eos # (Auto) 0.0 Baso # (Auto) 0.0 Abs Immat Gran (auto) 0.04 H Absolute Neuts (auto) 7.2 Absolute Nucleated RBC 0.000 Nucleated RBC % (auto) 0.0 Smear Tech's Comments VERIFIED ESR Sodium 136 Potassium 4.4 Chloride 106 Carbon Dioxide 21 L Anion Gap 13 BUN 17 H Creatinine 0.95 Estim Creat Clear Calc 88.1 Estimated GFR > 60 Random Glucose 158 H D Calcium 8.0 L Total Bilirubin Direct Bilirubin AST ALT Alkaline Phosphatase Troponin I High Sens C-Reactive Protein Total Protein Albumin COVID-19 (SOFÍA) Negative COVID-19 Clin Com See Note Preliminary micro results at discharge 05/22/21 13:53 Blood Culture - Preliminary Blood - Venous No growth after 24 hours. 05/22/21 13:53 Blood Culture - Preliminary Blood - Venous No growth after 24 hours. Discharge Plan Discharge Patient Disposition: Home Health Service Discharge Diagnosis: mass of parotid gland Referrals: [facility] [Outside] - 1 Week Eliana Calloway MD [Primary Care Provider] - 1 Week Discharge Medications: New amoxicillin-pot clavulanate [Augmentin] 875-125 mg tablet 1 tab PO BID 10 Days Qty: 20 RF: 0 prednisone 10 mg tablet See Taper mg PO DAILY Qty: 30 RF: 0 Continued multivitamin Tablet 1 tab PO DAILY RF: 0 thiamine HCl (vitamin B1) 100 mg tablet 1 tab PO DAILY RF: 0 carvedilol 3.125 mg tablet 1 tab PO BID RF: 0 verapamil 180 mg capsule,ext rel. pellets 24 hr 360 mg PO BEDTIME RF: 0 tamsulosin 0.4 mg capsule 1 cap PO DAILY RF: 0 ferrous sulfate 324 mg (65 mg iron) Tablet,Delayed Release (Dr/Ec) 324 mg PO DAILY RF: 0 Discharge Orders: Discharge Order (Routine); Ordered 05/23/21 Ordered By: Sofia Alanis Diet: advance to usual diet Activity on Discharge: As tolerated Stand Alone Forms: Patient Portal Discharge page Care Plan Goals: see below Health Concerns: mass of parotid gland parotitis anemia Plan of Treatment: complete entire course of antibiotics complete course of steroids call to schedule follow up with PCP for repeat imaging and possible parotid gland biopsy return to the ED if you have any difficulty swallowing, breathing or worsening in neck swelling Assessment: mass of parotid gland
--- NOTE | 2021-05-23 17:53 | PC.NURSE ---
nurse care manager Briseida to fax MD discharge summary to [facility] in the morning. Reviewed discharge instructions with pt.
== END 2021-05-23 18:16 | disposition home health service (06) | DRG 156 ==
LOC: HO.ED 20:46 → HO.EDOVER 22:17
PROVIDERS: Physician Assistant; Admitting Provider Hospitalist; Emergency Provider Internal Medicine; PCP Internal Medicine; Visit Provider Physician Assistant Medical
DX: K11.21 Acute sialoadenitis (principal); I10 Essential (primary) hypertension; K11.8 Other diseases of salivary glands; Z86.16 Personal history of COVID-19; Z20.822 Contact with and (suspected) exposure to COVID-19; Z79.899 Other long term (current) drug therapy
CPT/HCPCS: 36415; 70491; 71046; 80048; 80076; 83605; 84484; 85025; 85652; 86140; 87040; 87635; 93005; 96361; 96365; 96375; 99219; 99284; 99285; J1100; J1885; J2543; J3370; Q9967

== ENCOUNTER 2023-03-06 21:02 | Emergency (ER) | payer OTHER, SELFPAY ==
--- NOTE | ~2023-03-06 | CT_ITS ---
EXAMINATION: CT ABDOMEN AND PELVIS WITH CONTRAST CLINICAL INFORMATION: Abdominal pain. COMPARISON: None available. TECHNIQUE: Multidetector volumetric images were obtained from the superior aspect of the liver through the pubic symphysis following administration 85 mL of Omnipaque 350 intravenous contrast. Sagittal and coronal reformatted images were obtained on the technologist's workstation. Oral contrast: No This CT examination was performed using dose optimization techniques as appropriate, variously including the following: *Automated exposure control *Adjustment of mA and/or kV according to patient size (this includes techniques or standardized protocols for targeted exams where dose is matched to indication/reason for exam; i.e. extremities or head) *Use of iterative reconstruction technique DLP: 731 mGy-cm FINDINGS: LUNG BASES: The visualized lung bases are unremarkable. LIVER, GALLBLADDER, AND BILIARY TREE: The liver is normal in size, shape, and attenuation. No focal hepatic lesion or biliary ductal dilatation is present. The gallbladder is unremarkable with no evidence of radiopaque gallstones, gallbladder wall thickening, or obvious pericholecystic inflammatory changes. PANCREAS: Unremarkable. SPLEEN: Unremarkable. ADRENAL GLANDS: Unremarkable. KIDNEYS AND URETERS: The kidneys are normal in size, shape, and attenuation. No hydronephrosis, hydroureter, or calculi seen. No perinephric stranding. BLADDER: Unremarkable. GASTROINTESTINAL TRACT: There are dilated distal small bowel loops measuring up to 4 cm containing stool-like material extending into a right inguinal hernia with normal caliber terminal small bowel exiting the hernia. The appendix is visualized and is within normal limits. ABDOMINAL WALL: There is a right inguinal hernia containing fat and distal small bowel. LYMPH NODES: Normal. VASCULAR: There is atherosclerotic plaque of the abdominal aorta and proximal branches with a 2.9 cm infrarenal aortic bulge. PELVIC VISCERA: Unremarkable. OSSEOUS STRUCTURES: Unremarkable. CT/CT abdomen pelvis w IV con IMPRESSION: Right inguinal hernia containing fat and distal bowel. Dilated distal small bowel containing stool-like material entering the right inguinal hernia with normal terminal small bowel exiting the hernia. Findings are consistent with bowel incarceration with early or partial small bowel obstruction. Atherosclerotic plaque of the abdominal aorta with a 2.9 cm infrarenal abdominal aortic bulge. Fleischner guidelines were followed.
[2023-03-06 21:44] VITALS: BP 156/93; PULSE 98; RESP 22; TEMP 36.4; O2SAT 96; BMI 32.9
[2023-03-06 22:07] VITALS: BP 203/105; PULSE 88; RESP 20; TEMP 36.8
--- NOTE | 2023-03-06 22:11 | ED.ABDPAIN ---
HPI - Abdominal Pain General Chief Complaint: Abdominal Pain Stated Complaint: sharp lwr abd pain; swollen, recent heart surg. Time Seen by Provider: 03/06/23 21:59 Source: patient Mode of arrival: ambulatory Limitations: no limitations History of Present Illness HPI narrative: Patient comes to the emergency room complaining of approximately 6 hours or sharp suprapubic/right lower quadrant pain. Patient denies nausea vomiting or diarrhea. Patient states it was sudden onset, no radiation. Patient denies any trauma. Of note, patient states he had recent heart surgery for hyper obstructive cardiomyopathy and valve replacement, patient is on Eliquis. Patient denies any other abdominal surgeries. Related Data Home Medications Medication Instructions Recorded Confirmed carvedilol 3.125 mg tablet 1 tab PO BID 05/22/21 05/22/21 ferrous sulfate 324 mg (65 mg 324 mg PO DAILY 05/22/21 05/22/21 iron) tablet,delayed release multivitamin 1 tab PO DAILY 05/22/21 05/22/21 tamsulosin 0.4 mg capsule 1 cap PO DAILY 05/22/21 05/22/21 thiamine HCl (vitamin B1) 100 mg 1 tab PO DAILY 05/22/21 05/22/21 tablet verapamil 180 mg 24 hr 360 mg PO BEDTIME 05/22/21 05/22/21 capsule,extended release Previous Rx's Medication Instructions Recorded amoxicillin 875 mg-potassium 1 tab PO BID 10 days #20 tabs 05/23/21 clavulanate 125 mg tablet (Augmentin) prednisone 10 mg tablet See Taper PO DAILY #30 tabs 05/23/21 Allergies Allergy/AdvReac Type Severity Reaction Status Date / Time No Known Allergies Allergy Unverified 05/22/21 17:10 Review of Systems Review of Systems Constitutional : No Weight loss, No Fever, No Chills, No Night Sweats, No Fatigue, No Malaise ENT/Mouth : No Hearing loss, No Ear Pain, No Nasal Congestion, No Sinus Pain, No Hoarseness, No sore throat, No Rhinorrhea, No Swallowing Difficulty Eyes: No Eye Pain, No Swelling, No Redness, No Foreign Body, No Discharge, No Vision Changes Cardiovascular : No Chest Pain, No SOB, No Dyspnea on Exertion, No Orthopnea, No Edema, No Palpitations Respiratory : No Cough, No Sputum, No Wheezing, No Smoke Exposure, No Dyspnea Gastrointestinal : Complaining of nausea vomiting, No Diarrhea, No Constipation, complaining with suprapubic and right lower quadrant pain, No Hematochezia, No Melena Genitourinary : no irregular bleeding, No Dysuria, No Urinary Frequency, No Hematuria, No Urinary Incontinence, No Urgency, No Flank Pain, No Urinary Flow Changes, No Hesitancy Musculoskeletal : No joint pain, No Myalgias, No Joint Swelling Skin : No Skin Lesions, No rash Neuro : No Weakness, No Numbness, No Paresthesias, No Loss of Consciousness, No Dizziness, No Headache Psych : No Anxiety/Panic, No Depression, No SI/HI/AH/VH, No Social Issues, Heme/Lymph: No Bruising, No Bleeding,No Lymphadenopathy Endocrine : No Polyuria, No Polydipsia, No Temperature Intolerance [facility] Past Medical History Medical History Hypothyroidism Hypertrophic obstructive cardiomyopathy HTN (hypertension) Social History Social History Smoked in Last 30 Days: No Use of substances other than those prescribed or required for medical reasons: No Advance Directives: No service: No Current occupational status: employed Physical Exam ED Vital Signs: Vital Signs - 24 hr 03/06/23 21:44 03/06/23 22:07 03/07/23 00:33 Temperature 97.5 F 98.2 F 98.3 F Pulse Rate 98 88 85 Respiratory Rate 22 H 20 14 Blood Pressure 156/93 H 203/105 H 167/95 H Pulse Oximetry 96 Oxygen Delivery Method Room Air Room Air Room Air BMI result Body Mass Index 32.9 Const Other: Appearance: Alert. Oriented X3. Seems in pain Eyes: Pupils equal, round and reactive to light. ENT: Pharynx normal. Neck: Normal inspection. Neck supple. No lymph nodes noted. No crepitus CVS: Normal heart rate and rhythm. Pulses normal. Normal S1 and S2 Respiratory: No respiratory distress. Breath sounds normal. No Wheezing. No rales Abdomen: Soft , nondistended, tenderness to palpation mostly in the suprapubic area, some discomfort in the right lower quadrant. Bedside bladder scan shows less than 14 mL of urine in the bladder Skin: Skin warm and dry. Normal skin color. Normal skin turgor. Extremities: No lower extremity edema. No Lacerations. No Rash Neuro: Oriented X 3. No motor deficit. No sensory deficit. Moving all extremities. No slurred speech. CN 2 through 12 grossly intact Psych: calm, cooperative, normal affect Course Course Course Narrative: -all of patient's labs and imaging pending -patient receiving IV fluids, morphine, Zofran Medical Decision Making Medical Decision Making MDM Narrative: -patient receiving IV fluids -patient more comfortable with pain medication -CT scan of the abdomen/pelvis has been done, imaging still not available, radiology report not available. Is likely the patient has an inguinal hernia -I discussed the patient with Dr. Parada, CT scan pending. Differential Diagnosis Differential Diagnoses: The differential diagnosis associated with the presentation includes (Sinusitis, inguinal hernia, cystitis, UTI) Lab Data 03/06/23 22:24 03/06/23 22:24 Labs: Lab Results 03/06/23 03/06/23 03/07/23 Range/Units 22:24 22:24 01:24 WBC 9.5 (4.8-10.8) X10*3/uL RBC 4.61 D (4.60-5.80) X10*6/uL Hgb 11.6 L D (14.0-18.0) g/dl Hct 35.4 L D (42.0-52.0) % MCV 76.8 L (80.0-98.0) fL MCH 25.2 L (27.0-33.0) pg MCHC 32.8 (31.0-36.0) g/dl RDW 15.4 (11.0-16.0) % Plt Count 308 (160-400) X10*3/uL MPV 9.1 L (9.4-12.4) fL Immature Gran % (Auto) 0.4 (0.0-0.4) % Neut % (Auto) 67.8 (45-73) % Lymph % (Auto) 16.4 L (20-40) % [place] % (Auto) 8.1 (2-11) % Eos % (Auto) 6.2 H (0-4) % Baso % (Auto) 1.1 (0-2) % Lymph # (Auto) 1.6 (1.2-4.9) X10*3/uL [place] # (Auto) 0.8 (0.1-1.2) X10*3/uL Eos # (Auto) 0.6 H (0.0-0.4) X10*3/uL Baso # (Auto) 0.1 (0.0-0.2) X10*3/uL Abs Immat Gran (auto) 0.04 H (0.00-0.03) X10*3/uL Absolute Neuts (auto) 6.4 (2.0-8.3) x10*3/uL Absolute Nucleated RBC 0.000 (0.0-0.012) X10*3/uL Nucleated RBC % (auto) 0.0 (0.0-0.2) /100WBC PT 15.2 H (11.1-13.3) SEC INR 1.3 H (0.9-1.1) Sodium 139 (135-145) mmol/L Potassium 3.8 (3.3-5.1) mmol/L Chloride 105 (96-108) mmol/L Carbon Dioxide 24 (22-29) mmol/L Anion Gap 14 (12-20) BUN 13 (9-16) mg/dL Creatinine 1.35 (0.5-1.4) mg/dL Estim Creat Clear Calc 62.4 Estimated GFR 54 Random Glucose 133 H (60-115) mg/dL Lactic Acid 2.5 H* (0.5-2.0) mmol/L Lactic Acid F/U @ 2Hr 2.1 H* (0.5-2.0) mmol/L Calcium 9.5 D (8.4-10.2) mg/dL Total Bilirubin 0.6 (0.0-1.0) mg/dL AST 23 (5-37) U/L ALT 17 (0-40) U/L Alkaline Phosphatase 81 (39-117) U/L Total Protein 8.0 (6.5-8.0) g/dL Albumin 4.2 (3.5-5.0) g/dL Lipase 34 Cancelled (8-78) U/L Urine Color Yellow Urine Appearance Clear Urine pH 7.5 (5.0-9.0) Ur Specific [place] 1.015 (1.005-1.025) Urine Protein Negative (Neg-Trace) mg/dL Urine Glucose (UA) Negative (Negative) mg/dL Urine Ketones Negative (Negative) mg/dL Urine Blood Negative (Negative) Urine Nitrite Negative (Negative) Ur Leukocyte Esterase Negative (Negative) COVID-19 (SOFÍA) Negative (Negative) COVID-19 Clin Com See Note Medications Administered Discontinued Medications Generic Name Dose Route Start Last Admin Trade Name Zulema PRN Reason Stop Dose Admin Sodium Chloride 1,000 mls @ 999 mls/hr 03/06/23 22:08 03/06/23 23:46 Ns IVCONT 03/06/23 23:08 Infused .Q1H1M ONE Infusion Iohexol 85 ml 03/07/23 01:07 03/07/23 01:08 Iohexol 350 Mg/Ml 100 Ml Infus..Btl IV 03/07/23 01:08 85 ml ONCE ONE Administration Morphine Sulfate 4 mg 03/06/23 22:08 03/06/23 22:34 Morphine Sulfate 4 Mg/Ml Cartridge IVPUSH 03/06/23 22:09 4 mg ONCE ONE Administration Protocol Ondansetron HCl 4 mg 03/06/23 22:08 03/06/23 22:34 Ondansetron Hcl 4 Mg/2 Ml Vial IVPUSH 03/06/23 22:09 4 mg ONCE ONE Administration Critical Care Time Critical Care Time Critical Care Time: Yes Total Critical Care Time: 60 Attestation: I have personally provided critical care time. Time includes review of lab data, radiology results, discussion with consultants, and monitoring for potential decompensation. Intervention performed as documented. Discharge Plan Discharge Clinical Impression: Abdominal pain Patient Disposition: Still a Patient Prescriptions: No Action multivitamin Tablet 1 tab PO DAILY thiamine HCl (vitamin B1) 100 mg tablet 1 tab PO DAILY carvedilol 3.125 mg tablet 1 tab PO BID verapamil 180 mg capsule,ext rel. pellets 24 hr 360 mg PO BEDTIME tamsulosin 0.4 mg capsule 1 cap PO DAILY ferrous sulfate 324 mg (65 mg iron) Tablet,Delayed Release (Dr/Ec) 324 mg PO DAILY amoxicillin-pot clavulanate [Augmentin] 875-125 mg tablet 1 tab PO BID 10 Days Qty: 20 0RF prednisone 10 mg tablet See Taper PO DAILY Qty: 30 0RF Taper: Prednisone 40 mg daily for 3 Days and 0 Hour 30 mg daily for 3 Days and 0 Hour 20 mg daily for 3 Days and 0 Hour 10 mg daily for 3 Days and 0 Hour
[2023-03-06 22:33] LABS: MANUAL DIFF FLAG NO
[2023-03-06] MEDS: ondansetron HCL 4 MG/2 ML VIAL IVPUSH (22:34)
[2023-03-06] MEDS: 0.9 % Sodium Chloride 1,000 ML 999 ML IVCONT (22:34)
[2023-03-06] MEDS: Morphine Sulfate 4 MG/ML CARTRIDGE IVPUSH (22:34)
[2023-03-06 22:44] LABS: Basophils Absolute Auto 0.1 X10*3/uL (0.0-0.2); Basophils Percent Auto 1.1 % (0-2); Eosinophils Absolute Auto 0.6 X10*3/uL (0.0-0.4); Eosinophils Percent Auto 6.2 % (0-4); Hematocrit 35.4 % (42.0-52.0); Hemoglobin 11.6 g/dl (14.0-18.0); Imm Gran Abs Auto 0.04 X10*3/uL (0.00-0.03); Imm Gran Pct Auto 0.4 % (0.0-0.4); Lymphocytes Absolute Auto 1.6 X10*3/uL (1.2-4.9); Lymphocytes Percent Auto 16.4 % (20-40); Mean Corpuscular HGB Conc 32.8 g/dl (31.0-36.0); Mean Corpuscular Hemoglobin 25.2 pg (27.0-33.0); Mean Corpuscular Volume 76.8 fL (80.0-98.0); Mean Platelet Volume 9.1 fL (9.4-12.4); Monocytes Absolute Auto 0.8 X10*3/uL (0.1-1.2); Monocytes Percent Auto 8.1 % (2-11); Neutrophils Absolute Auto 6.4 x10*3/uL (2.0-8.3); Neutrophils Percent Auto 67.8 % (45-73); Platelet Count 308 X10*3/uL (160-400); Red Blood Count 4.61 X10*6/uL (4.60-5.80); Red Cell Distribution Width 15.4 % (11.0-16.0); White Blood Count 9.5 X10*3/uL (4.8-10.8)
[2023-03-06 22:48] LABS: Alanine Aminotransferase 17 U/L (0-40); Albumin Level 4.2 g/dL (3.5-5.0); Alkaline Phosphatase 81 U/L (39-117); Anion Gap 14 (12-20); Aspartate Amino Transferase 23 U/L (5-37); Bilirubin Total 0.6 mg/dL (0.0-1.0); Blood Urea Nitrogen 13 mg/dL (9-16); Calcium 9.5 mg/dL (8.4-10.2); Carbon Dioxide 24 mmol/L (22-29); Chloride 105 mmol/L (96-108); Creatinine Clr Calc Pharmacy 62.4; Estimated Glomerular Filt Rate 54; Glucose Random 133 mg/dL (60-115); Lipase 34 U/L (8-78); Potassium 3.8 mmol/L (3.3-5.1); Sodium 139 mmol/L (135-145)
[2023-03-06 22:50] LABS: Lactic Acid 2.5 mmol/L (0.5-2.0)
[2023-03-06 23:02] LABS: INTERNATIONAL NORM RATIO 1.3 (0.9-1.1); Prothrombin Time 15.2 SEC (11.1-13.3)
[2023-03-06 23:04] LABS: COVID-19 Test Negative (Negative); IDNOW Serial# 08D9AD1C
[2023-03-07 00:31] LABS: Reflex Lactate? Lactic Acid Added
[2023-03-07 00:33] VITALS: BP 167/95; PULSE 85; RESP 14; TEMP 36.8
[2023-03-07] MEDS: iohexoL 350 MG/ML 100 ML INFUS..BTL 85 ML IV (01:08)
[2023-03-07 01:30] LABS: Appearance Urine Clear; Color Urine Yellow; Glucose Urine UA Negative (Negative); Leukocyte Esterase Urine Negative (Negative); Nitrite Urine Negative (Negative); PH 7.5 (5.0-9.0); Specific Gravity - Urine 1.015 (1.005-1.025); Urine Blood Negative (Negative); Urine Ketones Negative (Negative); Urine Protein Negative (Neg-Trace)
[2023-03-07 01:44] LABS: ~Lactic Acid-LAB USE ONLY 2.1 mmol/L (0.5-2.0)
[2023-03-07] MEDS: HYDROmorphone HCl 1 MG/ML SYRINGE IVPUSH (02:09)
[2023-03-07 03:27] LABS: Reflex Lactate? 2 Y
[2023-03-07] MEDS: Piperacillin Sodium/Tazobactam 3.375 GM in 0.9 % Sodium Chloride 50 ML IV (03:42)
[2023-03-07 03:56] LABS: ~Lactic Acid-LAB USE ONLY 1.5 mmol/L (0.5-2.0)
[2023-03-07 06:22] VITALS: BP 133/79; PULSE 71; RESP 14; TEMP 36.7; O2SAT 95
[2023-03-07 07:06] VITALS: BP 141/86; PULSE 74; RESP 18; O2SAT 96
--- NOTE | 2023-03-07 07:11 | PC.NURSE ---
Alert and oriented, denies pain or discomfort, remains NPO, aware plan is to admit for surgical consult
--- NOTE | 2023-03-07 08:15 | PM.CNGS ---
History of Present Illness Consult details Consult date: 03/07/23 Requesting physician: Octavio Parada Narrative: 62-year-old male patient presented to the emergency department with a 6 hour history of pain in the right lower abdomen and suprapubic region. He has a recent history of open heart surgery for for hypertrophic obstructive cardiomyopathy which required a valve replacement and AICD. He is currently on Eliquis following the surgery. He denies a previous history of an inguinal hernia but was noted on examination to have a painful lump in the right groin. CT abdomen and pelvis confirmed a right inguinal hernia containing a loop of bowel. This was easily able to be reduced by the ED physician after which the patient felt much improved. Patient currently denies any abdominal pain, nausea or vomiting. He reports minimal to no discomfort in the right groin currently. He denies any current nausea or vomiting. Review of Systems Review of Systems: Yes all other systems are reviewed and are negative Gastrointestinal: Gastrointestinal: Reports as per [facility] Past Medical History Medical History Hypothyroidism Hypertrophic obstructive cardiomyopathy HTN (hypertension) Social History Social History Smoked in Last 30 Days: No Use of substances other than those prescribed or required for medical reasons: No Advance Directives: No service: No Current occupational status: employed Meds Allergies Allergy/AdvReac Type Severity Reaction Status Date / Time No Known Allergies Allergy Unverified 05/22/21 17:10 Home Medications Medication Instructions Recorded Confirmed Last Taken Type carvedilol 3.125 mg tablet 1 tab PO BID 05/22/21 03/07/23 03/06/23 History aspirin 325 mg tablet,delayed 325 mg PO DAILY 03/07/23 03/07/23 03/06/23 History release atorvastatin 80 mg tablet 80 mg PO DAILY 03/07/23 03/07/23 03/06/23 History levothyroxine 125 mcg tablet 125 mcg PO DAILY@0600 03/07/23 03/07/23 03/06/23 History omeprazole 20 mg capsule,delayed 20 mg PO DAILY@0630 03/07/23 03/07/23 03/06/23 History release Physical Exam Vital Signs: Vital Signs: Last Vital Signs Temp 98.0 F 03/07/23 06:22 Pulse 74 03/07/23 07:06 Resp 18 03/07/23 07:06 BP 141/86 H 03/07/23 07:06 Pulse Ox 96 03/07/23 07:06 O2 Del Method Room Air 03/07/23 07:06 BMI result Body Mass Index 32.9 Const: General: comfortable, alert and awake Nutritional Appearance: obese Orientation/consciousness: patient oriented x3 Resp: Effort & Inspection: normal respiratory effort, no audible wheezes, no cough and no respiratory distress GI: Other: right groin is soft with a palpable hernia noted on Valsalva maneuvers but currently reduced. No tenderness to palpation in the right or left groins. No tenderness to palpation of the testicle or epididymis. Inspection: Yes obesity Palpation (GI): Soft to palpation, nontender, no guarding and not rigid Skin: Other: Warm, dry, no rash Neuro: General: patient oriented x3 Extrem: General: Yes normal to inspection Results Labs 03/06/23 22:24 03/06/23 22:24 Labs: Abnormal lab results 03/06/23 03/07/23 Range/Units 22:24 01:24 Hgb 11.6 L D (14.0-18.0) g/dl Hct 35.4 L D (42.0-52.0) % MCV 76.8 L (80.0-98.0) fL MCH 25.2 L (27.0-33.0) pg MPV 9.1 L (9.4-12.4) fL Lymph % (Auto) 16.4 L (20-40) % Eos % (Auto) 6.2 H (0-4) % Eos # (Auto) 0.6 H (0.0-0.4) X10*3/uL Abs Immat Gran (auto) 0.04 H (0.00-0.03) X10*3/uL PT 15.2 H (11.1-13.3) SEC INR 1.3 H (0.9-1.1) Random Glucose 133 H (60-115) mg/dL Lactic Acid 2.5 H* (0.5-2.0) mmol/L Lactic Acid F/U @ 2Hr 2.1 H* (0.5-2.0) mmol/L Short CBC 03/06/23 Range/Units 22:24 WBC 9.5 (4.8-10.8) X10*3/uL Hgb 11.6 L D (14.0-18.0) g/dl Hct 35.4 L D (42.0-52.0) % Plt Count 308 (160-400) X10*3/uL BMP 03/06/23 22:24 Sodium 139 Potassium 3.8 Chloride 105 Carbon Dioxide 24 BUN 13 Creatinine 1.35 Calcium 9.5 D Liver Function 03/06/23 Range/Units 22:24 Total Bilirubin 0.6 (0.0-1.0) mg/dL AST 23 (5-37) U/L ALT 17 (0-40) U/L Alkaline Phosphatase 81 (39-117) U/L Albumin 4.2 (3.5-5.0) g/dL Urine 03/07/23 Range/Units 01:24 Urine Color Yellow Urine Appearance Clear Urine pH 7.5 (5.0-9.0) Ur Specific [place] 1.015 (1.005-1.025) Urine Protein Negative (Neg-Trace) mg/dL Urine Glucose (UA) Negative (Negative) mg/dL All other labs normal. Assessment and Plan (1) Inguinal hernia of right side with obstruction: Status: Acute Plan patient presented initially with a right inguinal hernia with obstruction. This was able to be reduced by the ED physician and now the patient is much improved. Hernia should be repaired on elective basis however due to patient's recent cardiac surgery, repair can be postponed until patient is medically cleared. He should avoid any lifting or straining and return to the ED symptoms return. The patient expressed understanding and agrees with the plan. Procedures Date of Service Date of Service: 03/07/23
--- NOTE | 2023-03-07 09:19 | PHA.MEDREC ---
Pharmacy Consult ? Medication Reconciliation Pharmacy has completed the medication reconciliation. Called pharmacy to confirm. Pharmacy states patient takes eliquis 5mg bid.
--- NOTE | 2023-03-07 09:54 | PC.NURSE ---
Discharge plan reviewed with patient who verbalized understanding with follow up instructions.
== END 2023-03-07 10:20 | disposition home or self-care (01) ==
PROVIDERS: Emergency Medicine; Emergency Provider Internal Medicine; PCP Internal Medicine
DX: K40.90 Unilateral inguinal hernia, without obstruction or gangrene, not specified as recurrent (principal); R10.31 Right lower quadrant pain; R11.2 Nausea with vomiting, unspecified; R05.9 Cough, unspecified; Z11.52 Encounter for screening for COVID-19; Z20.822 Contact with and (suspected) exposure to COVID-19; Z79.899 Other long term (current) drug therapy
CPT/HCPCS: 36415; 74177; 80053; 81003; 83605; 83690; 85025; 85610; 87040; 87635; 96361; 96365; 96375; 99285; J1170; J2270; J2405; J2543; Q9967

== ENCOUNTER → 2023-03-06 22:42 | Outpatient (BNV) | payer OTHER, SELFPAY | PROVIDERS: Emergency Provider Internal Medicine; PCP Internal Medicine; Visit Provider Surgery | DX: K40.30 Unilateral inguinal hernia, with obstruction, without gangrene, not specified as recurrent (principal) | CPT/HCPCS: 99283 ==

== ENCOUNTER 2023-03-19 08:44 | Outpatient (AMB) | payer OTHER, SELFPAY ==
--- NOTE | 2023-03-19 08:50 | A.OFFVIS_ITS ---
Intake Vital Signs 3 03/19/23 08:55 Height 5 ft 7 in Weight 220 lb BMI 34.5 BP 187/88 H Blood Pressure Location Rt brachial Position Sitting Pulse 89 Intake Visit Reasons: right inguinal hernia Intake Note: Patient is seen in office for ER on 03-07-23 follow up visit, following abdominal pain poss CTH. Patient c/o:tenderness, abd feels swollen. Taking rx morphine as needed. ER & CT: 03/07/23 Vegetable Grower Required: No Accompanied by: Self / Same As Patient Allergies No Known Allergies Allergy (Unverified 03/19/23 08:57) HPI HPI Comments 2 History of Present Illness0 Details 62-year-old male patient with history of hypertrophic obstructive cardiomyopathy and atrial fibrillation, status post aortic valve replacement performed [facility] [place] (Dr. Rossi Garrido MD on 01/22/2023) and AICD placement, evaluated in the emergency department on 03/07/2023 for a symptomatic right inguinal hernia. In the emergency department the hernia was able to be reduced by the ED physician. He is currently on Eliquis for his atrial fibrillation. The decision was made to hold off on repair of the right inguinal hernia due to his recent cardiac surgery and need for Eliquis. Since his discharge from the emergency department he continues to have some discomfort in the right groin but does report no nausea, vomiting, fever or chills. His bowels are moving a daily basis. [facility] Medical History (Updated 03/19/23 @ 09:42 by Uriel Ely MD) On continuous oral anticoagulation Atrial fibrillation Hypothyroidism Hypertrophic obstructive cardiomyopathy HTN (hypertension) Surgical History (Updated 03/19/23 @ 09:26 by Uriel Ely MD) Presence of biventricular AICD Heart valve replaced (~01/2023) Social History (Updated 03/19/23 @ 08:59 by BRYAN Tran) Alcohol intake: never Patient Tobacco Use Status: Never used Tobacco service: No Current occupational status: employed Review of Systems Const All systems reviewed & are unremarkable except as noted in HPI and below Denies chills, Denies fever(s), Denies headache(s), Denies poor appetite and Denies weakness ENT Denies headache(s) Card Denies chest pain, Denies irregular heart rhythm, Denies palpitations and Denies dyspnea Resp Denies cough, Denies excessive phlegm production and Denies dyspnea GI Denies abdominal pain, Denies bloating, Denies change in bowel habits, Denies constipation, Denies heartburn, Denies diarrhea, Denies nausea and Denies vomiting Denies difficulty urinating and Denies urinary frequency Musc Denies back pain, Denies muscle weakness and Denies numbness Skin/Breast Denies changing lesions and Denies unusual bruising Neuro Denies headache(s), Denies numbness, Denies paresthesias and Denies weakness Psych Denies anxiety and Denies depression Endo Denies palpitations Kai/Lymph Denies lymphadenopathy Physical Exam Vital Signs: Last Vital Signs Pulse 89 03/19/23 08:55 BP 187/88 H 03/19/23 08:55 BMI result Body Mass Index 34.5 Const General: cooperative and no acute distress Nutritional Appearance: well nourished Orientation/consciousness: patient oriented x3 Limitations: no limitations HEENT Head: Yes normocephalic and Yes atraumatic Ears: hearing grossly normal bilaterally Chest Other: AICD located left chest Resp Effort & Inspection: normal respiratory effort, no audible wheezes, no cough and no respiratory distress Cardio Jugular venous distension: no JVD GI Other: Easily reducible right inguinal hernia which increases with Valsalva maneuvers. There is slight tenderness to palpation of the right inguinal hernia. No hernia palpable on the left side. Inspection: Yes normal to inspection Abdomen image: 2 1. Right inguinal hernia Skin Other: Warm, dry, no rash Neuro General: patient oriented x3 Extrem General: Yes no clubbing, cyanosis or edema Assessment & Plan Assessment & Plan (1) Reducible right inguinal hernia: Code(s): K40.90 - Unilateral inguinal hernia, without obstruction or gangrene, not specified as recurrent Plan 62-year-old male patient returning following a recent visit to the emergency department on 03/07/2023 for an incarcerated right inguinal hernia. The hernia was easily reduced in the emergency department in the patient reports the hernia has remained reduced. He does have occasional discomfort from the hernia but has avoided all lifting. He will need repair of this right inguinal hernia soon as cleared from a cardiac standpoint. As he has recently undergone valve surgery I will discuss this with his cardiac surgeon. Surgical repair of the hernia can be delayed as long as the hernia is reducible. I recommended he avoid lifting greater than 10 lb until after repair of the hernia. Expressed understanding and agrees with the plan. He will follow up in 1 month. Coding Level of Care Code Est Pt Level 4 (26650) Diagnoses Reducible right inguinal hernia K40.90
[2023-03-19 08:55] VITALS: BP 187/88; PULSE 89; BMI 34.5
== END 2023-03-19 09:41 | disposition home or self-care (01) ==
PROVIDERS: PCP Internal Medicine; Visit Provider Surgery
DX: K40.90 Unilateral inguinal hernia, without obstruction or gangrene, not specified as recurrent (principal)
CPT/HCPCS: 99214

== ENCOUNTER → 2023-03-19 08:44 | Outpatient (BNVA) | payer OTHER, SELFPAY | PROVIDERS: PCP Internal Medicine; Visit Provider Surgery ==

== ENCOUNTER 2023-04-30 09:28 | Outpatient (AMB) | payer OTHER, SELFPAY ==
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
[2023-04-30 09:40] VITALS: BP 169/99; PULSE 76; BMI 35.1
== END 2023-04-30 09:49 | disposition home or self-care (01) ==
PROVIDERS: PCP Internal Medicine; Visit Provider Surgery
DX: K40.90 Unilateral inguinal hernia, without obstruction or gangrene, not specified as recurrent (principal); I48.20 Chronic atrial fibrillation, unspecified; Z95.810 Presence of automatic (implantable) cardiac defibrillator; Z79.01 Long term (current) use of anticoagulants
CPT/HCPCS: 99213

== ENCOUNTER → 2023-04-30 09:28 | Outpatient (BNVA) | payer OTHER, SELFPAY | PROVIDERS: PCP Internal Medicine; Visit Provider Surgery ==

== ENCOUNTER 2023-07-31 08:42 | Outpatient (AMB) | payer OTHER, SELFPAY ==
--- NOTE | 2023-07-31 08:57 | MHC.OFFVIS ---
Intake Vital Signs 07/31/23 09:05 Height 5 ft 7 in Weight 239 lb 6 oz BMI 37.5 BP 189/91 H Blood Pressure Location Lt brachial Position Sitting Pulse 81 Intake Visit Reasons: 3 mth follow up right inguinal hernia Intake Note: Patient is seen in office for one month follow up visit, following right inguinal hernia. Patient c/o: had an incident this morning, felt cramps and a lump in the area, was able to push in the lump and discomfort went away Police Dispatcher Required: No Accompanied by: Self / Same As Patient Allergies No Known Allergies Allergy (Unverified 07/31/23 09:06) HPI HPI Comments History of Present Illness Details 62-year-old male patient returning for follow-up examination of his right inguinal hernia. As previously noted he has a history of hypertrophic obstructive cardiomyopathy and atrial fibrillation and is status post aortic valve replacement with AICD placement performed at [facility] [place]. Rossi Garrido MD on 01/22/2023. He was evaluated in the emergency department on 03/07/2023 for a symptomatic right inguinal hernia. In the emergency department the hernia was able to be reduced by the ED physician. He is currently on Eliquis for his atrial fibrillation. He was previously evaluated on 03/19/2023 and decision made to hold off on repair of the right inguinal hernia due to his recent cardiac surgery and need for Eliquis. Since his last visit reports occasional discomfort in the right groin which comes and goes but denies similar symptoms to or brought to the emergency department including this morning. He was able to feel the hernia in push it back in. The pain improved after reducing the hernia. He denies nausea, vomiting, fever or chills. 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 He was placed on colchicine which does not seem to be helping. [facility] Medical History On continuous oral anticoagulation Atrial fibrillation Hypothyroidism Hypertrophic obstructive cardiomyopathy HTN (hypertension) Surgical History Presence of biventricular AICD Heart valve replaced (~01/2023) Social History Alcohol intake: never Patient Tobacco Use Status: Never used Tobacco service: No Current occupational status: employed Review of Systems Const All systems reviewed & are unremarkable except as noted in HPI and below Denies chills, Denies fever(s), Denies headache(s), Denies poor appetite and Denies weakness ENT Denies headache(s) Card Denies chest pain, Denies irregular heart rhythm, Denies palpitations and Denies dyspnea Resp Denies cough, Denies excessive phlegm production and Denies dyspnea GI Denies abdominal pain, Denies bloating, Denies change in bowel habits, Denies constipation, Denies heartburn, Denies diarrhea, Denies nausea and Denies vomiting Denies difficulty urinating and Denies urinary frequency Musc Denies back pain, Denies muscle weakness and Denies numbness Skin/Breast Denies changing lesions and Denies unusual bruising Neuro Denies headache(s), Denies numbness, Denies paresthesias and Denies weakness Psych Denies anxiety and Denies depression Endo Denies palpitations Kai/Lymph Denies lymphadenopathy Physical Exam Const General: cooperative and no acute distress Nutritional Appearance: well nourished Orientation/consciousness: patient oriented x3 Limitations: no limitations HEENT Head: Yes normocephalic and Yes atraumatic Ears: hearing grossly normal bilaterally Chest Other: AICD located left chest Resp Effort & Inspection: normal respiratory effort, no audible wheezes, no cough and no respiratory distress Cardio Jugular venous distension: no JVD GI Other: Easily reducible right inguinal hernia which increases with Valsalva maneuvers. There is minimal tenderness to palpation of the right inguinal hernia. No hernia palpable on the left side. Inspection: Yes normal to inspection Skin Other: Warm, dry, no rash Neuro General: patient oriented x3 Extrem General: Yes no clubbing, cyanosis or edema Assessment & Plan Assessment & Plan (1) Reducible right inguinal hernia: Code(s): K40.90 - Unilateral inguinal hernia, without obstruction or gangrene, not specified as recurrent (2) Atrial fibrillation: Code(s): I48.91 - Unspecified atrial fibrillation Qualifiers: Atrial fibrillation type: unspecified chronic Qualified Code(s): I48.20 - Chronic atrial fibrillation, unspecified (3) Presence of biventricular AICD: Code(s): Z95.810 - Presence of automatic (implantable) cardiac defibrillator (4) On continuous oral anticoagulation: Code(s): 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 He is now having increased symptoms in the right groin and is to push the hernia back in to relieve the cramping. I recommended repair of this symptomatic right inguinal hernia on elective basis and after discussion of the procedure, risks, and alternatives, consents to the surgery. Coding Level of Care Code Est Pt Level 4 (49869) Diagnoses Reducible right inguinal hernia K40.90 Chronic atrial fibrillation I48.20 Atrial fibrillation type: unspecified chronic Presence of biventricular AICD Z95.810 On continuous oral anticoagulation Z79.01
[2023-07-31 09:05] VITALS: BP 189/91; PULSE 81; BMI 37.5
== END 2023-07-31 09:14 | disposition home or self-care (01) ==
PROVIDERS: PCP Internal Medicine; Visit Provider Surgery
DX: K40.90 Unilateral inguinal hernia, without obstruction or gangrene, not specified as recurrent (principal); I48.20 Chronic atrial fibrillation, unspecified; Z95.810 Presence of automatic (implantable) cardiac defibrillator; Z79.01 Long term (current) use of anticoagulants
CPT/HCPCS: 99214

== ENCOUNTER → 2023-07-31 08:42 | Outpatient (BNVA) | payer OTHER, SELFPAY | PROVIDERS: PCP Internal Medicine; Visit Provider Surgery ==

== ENCOUNTER → 2023-08-31 12:58 | Outpatient (BNV) | payer OTHER, SELFPAY | PROVIDERS: PCP Internal Medicine; Visit Provider Internal Medicine | DX: R94.31 Abnormal electrocardiogram [ECG] [EKG] (principal) | CPT/HCPCS: 93010 ==

== ENCOUNTER 2023-09-07 05:57 | Day surgery (SDC) | payer OTHER, SELFPAY ==
--- NOTE | 2023-08-31 | ECG_ITS ---
Test Reason : preop Blood Pressure : / mmHG Vent. Rate : 061 BPM Atrial Rate : 061 BPM P-R Int : 178 ms QRS Dur : 200 ms QT Int : 492 ms P-R-T Axes : 085 071 241 degrees QTc Int : 495 ms AV dual-paced rhythm Abnormal ECG When compared with ECG of 22-MAY-2021 13:37, Electronic ventricular pacemaker has replaced Sinus rhythm Referred By: Abiola Corado Electronically Signed By:FER LAGUNA
[2023-08-31 12:14] VITALS: BP 134/80; PULSE 64; RESP 18; O2SAT 96; BMI 37.7
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
[2023-08-31 14:12] LABS: Hemoglobin 12.5 g/dl (14.0-18.0); Mean Corpuscular HGB Conc 33.8 g/dl (31.0-36.0); Mean Corpuscular Hemoglobin 26.3 pg (27.0-33.0); Mean Corpuscular Volume 77.9 fL (80.0-98.0); Mean Platelet Volume 9.7 fL (9.4-12.4); Platelet Count 337 X10*3/uL (160-400); Red Blood Count 4.75 X10*6/uL (4.60-5.80); Red Cell Distribution Width 15.7 % (11.0-16.0); White Blood Count 6.7 X10*3/uL (4.8-10.8)
[2023-08-31 14:54] LABS: Anion Gap 11 (12-20); Blood Urea Nitrogen 15 mg/dL (9-16); Calcium 9.3 mg/dL (8.4-10.2); Carbon Dioxide 24 mmol/L (22-29); Chloride 106 mmol/L (96-108); Creatinine Clr Calc Pharmacy 84.4; Estimated Glomerular Filt Rate > 60; Glucose Random 100 mg/dL (60-115); Potassium 3.9 mmol/L (3.3-5.1); Sodium 137 mmol/L (135-145)
[2023-09-07 06:42] VITALS: BP 133/80; PULSE 67; RESP 16; TEMP 36.6; O2SAT 99
[2023-09-07] MEDS: Lactated Ringers 1,000 ML 100 ML IVCONT (06:48)
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
--- NOTE | 2023-09-07 07:22 | HO.ANESPROP2 ---
[facility] Active Problems Active Problems: All Active Problems Reducible right inguinal hernia (Acute) Anemia (Acute) Parotitis (Acute) Neck swelling (Acute) Mass of right parotid gland (Acute) Presence of biventricular AICD (Acute) On continuous oral anticoagulation (Acute) Atrial fibrillation (Acute) Past Medical History Medical History (Updated 08/31/23 @ 12:37 by Malissa Garcia RN) Retinal artery branch occlusion of right eye GERD (gastroesophageal reflux disease) Pacemaker Blindness of right eye COVID-19 Nonrheumatic mitral (valve) stenosis Nonrheumatic aortic (valve) stenosis On continuous oral anticoagulation Atrial fibrillation Hypothyroidism Hypertrophic obstructive cardiomyopathy HTN (hypertension) Family History Family history of problems with anesthesia: No Surgical History Surgical History (Updated 08/31/23 @ 12:36 by Malissa Garcia RN) H/O colonoscopy Presence of biventricular AICD Heart valve replaced (~01/2023) History of Problems with Anesthesia: No Social History Social History Are you a primary administrator health care facility to a significant other at home: No Do you presently have visiting nurse or other home services: No Alcohol intake: never Patient Tobacco Use Status: Former Tobacco user Quit Date: 2003 Use of substances other than those prescribed or required for medical reasons: No Have you been hit, kicked, punched, or otherwise hurt by someone within the past year? If so, by whom?: No Are you DNR?: No Advance Directives: No Advance Directives Information Provided: Yes Advance Directives on File: No Recently lost weight without trying: No Eating poorly because of decreased appetite: No Nutrition Risks: No Nutritional Risk Poor oral hygiene: Yes (crowns in place) service: No Current occupational status: employed Meds Allergies Allergy/AdvReac Type Severity Reaction Status Date / Time metoprolol Allergy Palpitation Verified 08/31/23 12:08 s Active Medications: Current Medications Lactated Ringer's (Lr) 1,000 mls @ 100 mls/hr IVCONT .Q10H ZAIRA Last Admin: 09/07/23 06:48 Dose: 100 mls/hr Home Medications ?Medication ?Instructions ?Recorded ?Confirmed ?Last Taken ?Type carvedilol 3.125 mg tablet 1 tab PO BID 05/22/21 08/31/23 09/06/23 History apixaban 5 mg tablet (Eliquis) 5 mg PO BID 03/07/23 08/31/23 09/04/23 History atorvastatin 80 mg tablet 80 mg PO DAILY 03/07/23 08/31/23 09/06/23 History levothyroxine 125 mcg tablet 125 mcg PO DAILY@0600 03/07/23 08/31/23 09/06/23 History omeprazole 20 mg capsule,delayed 20 mg PO DAILY@0630 03/07/23 08/31/23 09/06/23 History release aspirin 81 mg tablet,delayed 81 mg PO DAILY 04/30/23 08/31/23 09/04/23 History release Exam Height,Weight and Vital Signs: Height 5 ft 7 in Weight 109.316 kg Last Vital Signs Temp 97.8 F 09/07/23 06:42 Pulse 67 09/07/23 06:42 Resp 16 09/07/23 06:42 BP 133/80 09/07/23 06:42 Pulse Ox 99 09/07/23 06:42 O2 Del Method Room Air 09/07/23 06:42 Pertinent Lab Results Pertinent Lab Results: Laboratory Tests 08/31/23 13:10 WBC 6.7 RBC 4.75 Hgb 12.5 L Hct 37.0 L MCV 77.9 L MCH 26.3 L MCHC 33.8 RDW 15.7 Plt Count 337 MPV 9.7 Absolute Nucleated RBC 0.000 Nucleated RBC % (auto) 0.0 Sodium 137 Potassium 3.9 Chloride 106 Carbon Dioxide 24 Anion Gap 11 L BUN 15 Creatinine 1.07 Estim Creat Clear Calc 84.4 Estimated GFR > 60 Random Glucose 100 Calcium 9.3 Airway Mallampati Class: III TM Dist: <=3cm Neck ROM: Full Loose/Missing/Broken Teeth: No Heart: rrr Lungs: cta Assessment and Plan Assessment Anesthesia Assessment: Anesthesia Plan Discussed and Chart Reviewed Final Anesthetic Review Family History of Problems with Anesthesia: No History of Problems with Anesthesia: No NPO: Yes ASA Class: III Final Preanesthetic Review: No Changes in Pt Med Stat, Meds/Allgs Chart Reviewed, Consent Obtained/Reviewed and Anes Risks/Benef Reviewed Patient Risk: Intermediate Procedure Risk: Low Anesthetic Plan Anesthetic Plan: GA Disposition: Standard PACU
--- NOTE | 2023-09-07 07:34 | W.PM.OPN ---
Operative Note Operative Note Date of Service: 09/07/23 Narrative: Preoperative diagnosis: Right inguinal hernia, reducible Postoperative diagnosis: Same Procedure: Repair of right inguinal hernia with mesh, reducible Surgeon: Uriel Ely MD Wind Farm Support Specialist: Marsha Pennington PA-C Anesthesia: General LMA Indications for procedure: 62-year-old male patient presenting with a palpable lump in the right groin which increases in size with lifting and straining but reduces when in the supine position. On examination the patient has a reducible right inguinal hernia. Operative findings: Indirect right inguinal hernia, reducible, with sliding component. Lipoma of the cord Specimen: Lipoma of the cord. Estimated blood loss: 2 mL Complications: None Procedure details: Patient was brought to the OR and placed in a supine position. After administering general anesthesia, the patient's abdomen was prepped with ChloraPrep and draped in a sterile fashion. A surgical time-out was called the consent confirmed. Patient received preoperative antibiotics and Venodyne boots were in place. Local anesthesia consisting of 0.5% Sensorcaine was then infiltrated over the right inguinal ligament. Incision was then made with a 15 blade and carried out through subcutaneous tissue down to Dot's fascia. This was then incised down to anterior rectus sheath. Hemostasis was assured at all times using electrocautery. External oblique aponeurosis was incised after infusing local anesthesia. The spermatic cord was then dissected free from the inguinal canal and retracted using a Freda drain. The floor of the inguinal canal was found to be intact. Fibers of the cremaster muscle were then . A large lipoma of the cord was identified. This was dissected down to the internal ring, ligated and divided. This was sent as specimen labeled lipoma of the cord. A hernia sac was then identified and dissected free down to the internal ring. The sac was opened and a large sliding component containing mesenteric fat was identified. The sac was closed using a running 0 Polysorb suture and reduced into the abdominal cavity. A preperitoneal space was made through the internal ring after reducing the sac. A large extended PHS mesh was then obtained. The circular underlay was then deployed within the preperitoneal space. The overlay was then secured to the pubic tubercle, conjoined tendon, and shelving edge of the inguinal ligament using 0 Polysorb suture. A slit was made in the mesh at the internal ring and wrapped around the internal ring and secured to the shelving edge of the inguinal ligament using the 0 Polysorb suture. The internal ring was tight enough to allow passage of the index finger through the internal ring. Wounds were then irrigated with saline solution and suctioned dry. External oblique aponeurosis was then closed using a running 2-0 Polysorb suture. 8 mL of Zenrelef was then infused below the external oblique aponeurosis. Dot's fascia and dermis were then reapproximated using interrupted 3-0 Polysorb sutures. Skin was closed using a running subcuticular 4-0 Polysorb suture. Steri-Strips, 2 x 2 gauze and Tegaderm were then applied. The patient tolerated the procedure well. Sponge, instrument, and needle counts reported as correct. The patient transferred to PACU in stable condition.
[2023-09-07 08:44] VITALS: BP 92/54; PULSE 78; RESP 16; TEMP 36.6; O2SAT 98
[2023-09-07 08:49] VITALS: BP 98/58; PULSE 74; RESP 16; O2SAT 96
[2023-09-07 08:59] VITALS: BP 106/53; PULSE 72; RESP 16; O2SAT 95
[2023-09-07 09:10] VITALS: BP 106/57; PULSE 70; RESP 16; TEMP 36.4; O2SAT 95
== END 2023-09-07 09:40 | disposition home or self-care (01) ==
PROVIDERS: Nurse Practitioner; PCP Internal Medicine; Visit Provider Surgery
PROC: (CPT 49525; principal; 2023-09-07 07:30)
DX: K40.90 Unilateral inguinal hernia, without obstruction or gangrene, not specified as recurrent (principal); D17.6 Benign lipomatous neoplasm of spermatic cord; I42.1 Obstructive hypertrophic cardiomyopathy; I48.20 Chronic atrial fibrillation, unspecified; Z95.810 Presence of automatic (implantable) cardiac defibrillator; Z95.2 Presence of prosthetic heart valve; I10 Essential (primary) hypertension; E03.9 Hypothyroidism, unspecified; Z79.01 Long term (current) use of anticoagulants; Z79.82 Long term (current) use of aspirin; Z79.899 Other long term (current) drug therapy
CPT/HCPCS: 49525; 36415; 80048; 85027; 88304; 93005; C1781; C9088; J0690; J1100; J2250; J2371; J2405; J2704; J2795; J3010

== ENCOUNTER → 2023-09-07 05:57 | Outpatient (BNV) | payer OTHER, SELFPAY | PROVIDERS: PCP Internal Medicine; Visit Provider Surgery | DX: K40.20 Bilateral inguinal hernia, without obstruction or gangrene, not specified as recurrent (principal) | CPT/HCPCS: 49505 ==

== ENCOUNTER 2023-09-17 09:54 | Outpatient (AMB) | payer OTHER, SELFPAY ==
--- NOTE | 2023-09-17 09:56 | A.OFFVIS_ITS ---
Vital Signs 09/17/23 10:02 Height 5 ft 7 in Weight 238 lb BMI 37.3 BP 138/83 Blood Pressure Location Lt brachial Position Sitting Pulse 77 Intake Visit Reasons: S/P RIH w/mesh Intake Note: Patient is seen in office for post op assessment post right inguinal hernia repair. Pt c/o: admits to sore, tender and bruise, denies discharge, redness or any complications Op:09/07/23 Store Sales Consultant Required: No Accompanied by: Self / Same As Patient Allergies metoprolol Allergy (Verified 09/17/23 10:01) Palpitations Medication List - Last Reconciled 09/17/23 by Uriel Ely MD apixaban (Eliquis) 5 mg PO BID aspirin 81 mg PO DAILY atorvastatin 80 mg PO DAILY carvedilol 1 tab PO BID levothyroxine 125 mcg PO DAILY@0600 omeprazole 20 mg PO DAILY@0630 HPI Comments Details: 62-year-old male patient returning 1 week following repair of a right inguinal hernia with mesh. He does report some soreness especially with walking but denies any nausea, vomiting, or constipation. He did not fill his prescription for pain medication and does not feel he needs any pain meds at this time. [facility] Medical History (Updated 09/07/23 @ 08:47 by Ramona Bethea MD) Retinal artery branch occlusion of right eye GERD (gastroesophageal reflux disease) Pacemaker Blindness of right eye COVID-19 Nonrheumatic mitral (valve) stenosis Nonrheumatic aortic (valve) stenosis On continuous oral anticoagulation Atrial fibrillation Hypothyroidism Hypertrophic obstructive cardiomyopathy HTN (hypertension) Surgical History Hx of right inguinal hernia repair (09/07/23) H/O colonoscopy Presence of biventricular AICD Heart valve replaced (~01/2023) Social History Are you a primary career development counselor to a significant other at home: No Do you presently have visiting nurse or other home services: No Alcohol intake: never Patient Tobacco Use Status: Former Tobacco user Quit Date: 2003 service: No Current occupational status: employed Physical Exam Vital Signs: Last Vital Signs Pulse 77 09/17/23 10:02 BP 138/83 09/17/23 10:02 BMI result Body Mass Index 37.3 Const General: no acute distress Nutritional Appearance: well nourished Orientation/consciousness: patient oriented x3 Resp Effort & Inspection: normal respiratory effort GI Other: Healing right groin incision with intact Steri-Strips. No redness or discharge appreciated. No hernia noted with Valsalva maneuvers. Neuro General: patient oriented x3 Extrem Other: No pedal edema Assessment & Plan Assessment & Plan (1) Reducible right inguinal hernia: Comment: Repair of the right inguinal hernia Dr. Ely September 2023 Code(s): K40.90 - Unilateral inguinal hernia, without obstruction or gangrene, not specified as recurrent Category: Medical Plan Status post repair of right inguinal hernia with mesh on 09/07/2023. He tolerated the procedure well the wounds are healing nicely. He should continue to avoid lifting greater than 10 lb and follow-up in 4 weeks for wound examination. Coding Level of Care Code Global (16313) Diagnoses Reducible right inguinal hernia K40.90
[2023-09-17 10:02] VITALS: BP 138/83; PULSE 77; BMI 37.3
== END 2023-09-17 10:11 | disposition home or self-care (01) ==
PROVIDERS: PCP Internal Medicine; Visit Provider Surgery
DX: K40.90 Unilateral inguinal hernia, without obstruction or gangrene, not specified as recurrent (principal)
CPT/HCPCS: 99024

== ENCOUNTER → 2023-09-17 09:54 | Outpatient (BNVA) | payer OTHER, SELFPAY | PROVIDERS: PCP Internal Medicine; Visit Provider Surgery ==

== ENCOUNTER 2023-10-15 09:43 | Outpatient (AMB) | payer OTHER, SELFPAY ==
--- NOTE | 2023-10-15 09:45 | MHC.OFFVIS ---
Vital Signs 10/15/23 10:08 Height 5 ft 7 in Weight 241 lb BMI 37.7 BP 162/77 H Blood Pressure Location Lt brachial Position Sitting Pulse 75 Intake Visit Reasons: 4 wk follow up S/P RIH w/mesh Intake Note: Patient is seen in office for one month follow up visit, post right inguinal hernia repair. Pt c/o: painful with certain activities, denies any other concerns Clinical Transplant Coordinator Required: No Accompanied by: Self / Same As Patient Allergies metoprolol Allergy (Verified 10/15/23 10:08) Palpitations HPI Comments Details: Patient returns 1 month following repair of a right inguinal hernia with mesh. Overall he is doing well but does have some discomfort when riding his bike. Denies any nausea, vomiting, fever or chills. His bowels are working normally as well. [facility] Medical History (Updated 09/07/23 @ 08:47 by Ramona Bethea MD) Retinal artery branch occlusion of right eye GERD (gastroesophageal reflux disease) Pacemaker Blindness of right eye COVID-19 Nonrheumatic mitral (valve) stenosis Nonrheumatic aortic (valve) stenosis On continuous oral anticoagulation Atrial fibrillation Hypothyroidism Hypertrophic obstructive cardiomyopathy HTN (hypertension) Surgical History Hx of right inguinal hernia repair (09/07/23) H/O colonoscopy Presence of biventricular AICD Heart valve replaced (~01/2023) Social History Are you a primary healthcare social worker to a significant other at home: No Do you presently have visiting nurse or other home services: No Alcohol intake: never Patient Tobacco Use Status: Former Tobacco user service: No Current occupational status: employed Physical Exam Const General: comfortable Nutritional Appearance: well nourished Resp Effort & Inspection: normal respiratory effort GI Other: Abdomen soft and. Well-healed incision in the right groin with no evidence of wound infection or hernia recurrence. No hernia noted with Valsalva maneuvers Skin Other: Warm, dry, no rash Assessment & Plan Assessment & Plan (1) Reducible right inguinal hernia: Comment: Repair of the right inguinal hernia Dr. Ely September 2023 Code(s): K40.90 - Unilateral inguinal hernia, without obstruction or gangrene, not specified as recurrent Category: Medical Plan Patient returns 1 month following repair of a right inguinal hernia with mesh. He tolerated the procedure well and his wounds are healing nicely. He may resume normal activity without restriction and should follow up as needed. Coding Level of Care Code Global (31588) Diagnoses Reducible right inguinal hernia K40.90
[2023-10-15 10:08] VITALS: BP 162/77; PULSE 75; BMI 37.7
== END 2023-10-15 10:09 | disposition home or self-care (01) ==
PROVIDERS: PCP Internal Medicine; Visit Provider Surgery
DX: K40.90 Unilateral inguinal hernia, without obstruction or gangrene, not specified as recurrent (principal)
CPT/HCPCS: 99024

== ENCOUNTER → 2023-10-15 09:43 | Outpatient (BNVA) | payer OTHER, SELFPAY | PROVIDERS: PCP Internal Medicine; Visit Provider Surgery | DX: K40.90 Unilateral inguinal hernia, without obstruction or gangrene, not specified as recurrent (principal) ==